=== PATIENT | male | born 1960 | race Caucasian/White ===

== ENCOUNTER 2017-10-06 07:38 | Inpatient (IN) | payer OTHER, SELFPAY ==
[~2017-10-06] VITALS: Ht 185.4 cm; Wt 67.4 kg
[~2017-10-06 07:38] MED LIST: ALBU3IS; ASPI81CH; ATOR40TA PO; Amiodarone HCl200 MG PO; BENZ100A PO; BISA10S PR; Cathflo Activase2 MG IV; Clomipramine HC25 MG PO; FAMO20 PO; HYDR10 PO; LAMO5 PO; LITH300ER PO; LORA1 PO; METO25ER PO; PANT20 PO; QUET25 PO; ROXICODONE5 MG PO; Synthroid112 MCG PO
[2017-10-06 08:46] LABS: BASOPHILS ABSOLUTE AUTO 0.07 K/mm3 (0.00-0.23); BASOPHILS PERCENT AUTO 1 % (0-2); EOSINOPHILS ABSOLUTE AUTO 0.05 K/mm3 (0.00-0.68); EOSINOPHILS PERCENT AUTO 0 % (0-6); Hematocrit 32.5 % (37.0-53.0); IMMATURE GRAN ABSOLUTE AUTO 0.02 K/mm3 (0.00-0.10); IMMATURE GRAN PERCENT AUTO 0 % (0-1); LYMPHOCYTES ABSOLUTE AUTO 0.96 K/mm3 (0.84-5.20); LYMPHOCYTES PERCENT AUTO 8 % (21-46); MONOCYTES ABSOLUTE AUTO 0.28 K/mm3 (0.16-1.47); MONOCYTES PERCENT AUTO 3 % (4-13); Mean Corpuscular HGB 27.5 pg (26.0-34.0); Mean Corpuscular HGB Conc 30.8 g/dL (31.5-36.5); Mean Corpuscular Volume 89 fL (80-100); Mean Platelet Volume 9.9 fL (9.1-12.4); NEUTROPHILS ABSOLUTE AUTO 9.99 K/mm3 (1.96-9.15); NEUTROPHILS PERCENT AUTO 88 % (41-73); Platelet Count 330 K/mm3 (150-400); RDW Standard Deviation 62.4 fL (35.1-46.3); Red Blood Cell Count 3.64 M/mm3 (4.30-5.90); White Blood Cell Count 11.37 K/mm3 (4.00-11.30)
[2017-10-06] MEDS ORDERED: ASPI81CH PO (08:54)
[2017-10-06] MEDS ORDERED: CLOM50A (08:55)
[2017-10-06] MEDS ORDERED: ATOR80 PO (08:56)
[2017-10-06] MEDS ORDERED: MIRALAX17 GM PO (08:56)
[2017-10-06] MEDS ORDERED: Ferrous Sulfat325 M2 (08:57)
[2017-10-06] MEDS ORDERED: LEVE500 PO (08:58)
[2017-10-06] MEDS ORDERED: POTA20LUD PO (08:59)
[2017-10-06 09:13] LABS: Alanine Aminotransfer (ALT/SGP 8 U/L (12-78); Albumin/Globulin Ratio 0.6 (0.8-1.8); Alk Phos 163 U/L (50-136); Anion Gap 8 mmol/L (6-16); Aspartate Aminotrans (AST/SGOT 47 U/L (12-37); Bilirubin, Total 1.1 mg/dL (0.1-1.0); Blood Urea Nitrogen 13 mg/dL (8-24); Bun/Creatinine Ratio 19.1 (12.0-20.0); CO2, Blood 24 mmol/L (21-32); Chloride, Blood 104 mmol/L (98-108); Creatinine, Blood 0.68 mg/dL (0.60-1.20); Globulin, Blood 4.7 g/dL (2.2-4.0); Glomerular Filtration Rate >60 (60-); Glucose, Blood 114 mg/dL (70-99); Potassium, Blood 4.1 mmol/L (3.5-5.5); Sodium, Blood 136 mmol/L (136-145); Total Protein, Blood 7.7 g/dL (6.4-8.2); Troponin I <0.015 ng/mL (0.000-0.040)
[2017-10-06 16:58] LABS: Source, Urine Catheter
[2017-10-06 18:02] LABS: Appearance, Urine Clear (Clear); Bilirubin, Urine Neg (Neg); Blood, Urine 4+ (Neg); Color, Urine Yellow (P-Yellow); Glucose Qualitative, Urine Neg (Neg); Ketones, Urine Neg (Neg); Leukocyte Esterase, Urine Neg (Neg); Nitrite, Urine Neg (Neg); Protein, Urine 1+ (Neg); Specific Gravity, Urine 1.015 (1.003-1.022); Urobilinogen, Urine 1+ (Normal)
[2017-10-06 18:23] LABS: White Blood Cells, Urine 0-2 /hpf (0-5)
[2017-10-06 18:24] LABS: Bacteria Rare /hpf; Squamous Epithelial Cells Not Seen /hpf (Few)
[2017-10-07 06:19] LABS: BASOPHILS ABSOLUTE AUTO 0.04 K/mm3 (0.00-0.23); BASOPHILS PERCENT AUTO 1 % (0-2); EOSINOPHILS ABSOLUTE AUTO 0.22 K/mm3 (0.00-0.68); EOSINOPHILS PERCENT AUTO 3 % (0-6); Hematocrit 29.6 % (37.0-53.0); Hemoglobin 8.7 g/dL (13.5-17.5); IMMATURE GRAN ABSOLUTE AUTO 0.01 K/mm3 (0.00-0.10); IMMATURE GRAN PERCENT AUTO 0 % (0-1); LYMPHOCYTES ABSOLUTE AUTO 0.88 K/mm3 (0.84-5.20); LYMPHOCYTES PERCENT AUTO 13 % (21-46); MONOCYTES PERCENT AUTO 8 % (4-13); Mean Corpuscular HGB 26.9 pg (26.0-34.0); Mean Corpuscular HGB Conc 29.4 g/dL (31.5-36.5); Mean Platelet Volume 9.4 fL (9.1-12.4); NEUTROPHILS ABSOLUTE AUTO 4.93 K/mm3 (1.96-9.15); NEUTROPHILS PERCENT AUTO 75 % (41-73); Platelet Count 273 K/mm3 (150-400); RDW Coefficient Variation 19.3 % (11.7-14.2); RDW Standard Deviation 64.8 fL (35.1-46.3); Red Blood Cell Count 3.23 M/mm3 (4.30-5.90); White Blood Cell Count 6.58 K/mm3 (4.00-11.30)
[2017-10-07 06:21] LABS: Mean Corpuscular Volume 92 fL (80-100)
[2017-10-07 06:35] LABS: Alanine Aminotransfer (ALT/SGP 8 U/L (12-78); Albumin, Blood 2.5 g/dL (3.4-5.0); Albumin/Globulin Ratio 0.7 (0.8-1.8); Alk Phos 127 U/L (50-136); Anion Gap 7 mmol/L (6-16); Aspartate Aminotrans (AST/SGOT 43 U/L (12-37); Bilirubin, Total 0.5 mg/dL (0.1-1.0); Blood Urea Nitrogen 11 mg/dL (8-24); Bun/Creatinine Ratio 19.8 (12.0-20.0); CO2, Blood 25 mmol/L (21-32); Calcium, Blood 8.1 mg/dL (8.5-10.1); Chloride, Blood 110 mmol/L (98-108); Creatinine, Blood 0.56 mg/dL (0.60-1.20); Globulin, Blood 3.8 g/dL (2.2-4.0); Glomerular Filtration Rate >60 (60-); Glucose, Blood 102 mg/dL (70-99); Magnesium, Blood 2.1 mg/dL (1.6-2.4); Potassium, Blood 4.1 mmol/L (3.5-5.5); Sodium, Blood 142 mmol/L (136-145); Total Protein, Blood 6.3 g/dL (6.4-8.2)
== END 2017-10-10 12:35 | DRG 390 ==
LOC: ER 07:38 → SURS 10:37 → ERHOLD 10:37 → SURS 12:32
PROVIDERS: Emergency Medicine; Internal Medicine
DX: K56.609 Unspecified intestinal obstruction, unspecified as to partial versus complete obstruction (principal); E03.9 Hypothyroidism, unspecified; I25.10 Atherosclerotic heart disease of native coronary artery without angina pectoris; G40.909 Epilepsy, unspecified, not intractable, without status epilepticus; F31.9 Bipolar disorder, unspecified; Z96.0 Presence of urogenital implants; Z93.1 Gastrostomy status; Z95.1 Presence of aortocoronary bypass graft; Z87.820 Personal history of traumatic brain injury; Z79.82 Long term (current) use of aspirin; Z79.899 Other long term (current) drug therapy
CPT/HCPCS: 36415; 74022; 74177; 80053; 81001; 83690; 83735; 84484; 85025; 93005; 93010; 94760; 96361; 96374; 96375; 97110; 97116; 97163; 97530; 99285; C9113; G8978; G8979; J1170; J1650; J1953; J2060; J2405; J7030; Q9967

== ENCOUNTER 2017-10-17 15:46 | Inpatient (IN) | payer OTHER, SELFPAY ==
[~2017-10-17] VITALS: Ht 185.4 cm; Wt 94.3 kg
[~2017-10-17 15:46] MED LIST changes: +ASPI81CH PO; +ATOR80 PO; +CLOM50A; +Ferrous Sulfat325 M2; +LEVE500 PO; +MIRALAX17 GM PO; +POTA20LUD PO
[2017-10-17 16:27] LABS: BASOPHILS ABSOLUTE AUTO 0.07 K/mm3 (0.00-0.23); BASOPHILS PERCENT AUTO 1 % (0-2); EOSINOPHILS ABSOLUTE AUTO 0.15 K/mm3 (0.00-0.68); EOSINOPHILS PERCENT AUTO 2 % (0-6); Hematocrit 35.4 % (37.0-53.0); Hemoglobin 10.9 g/dL (13.5-17.5); IMMATURE GRAN ABSOLUTE AUTO 0.03 K/mm3 (0.00-0.10); IMMATURE GRAN PERCENT AUTO 0 % (0-1); LYMPHOCYTES ABSOLUTE AUTO 1.59 K/mm3 (0.84-5.20); LYMPHOCYTES PERCENT AUTO 16 % (21-46); MONOCYTES PERCENT AUTO 7 % (4-13); Mean Corpuscular HGB 27.6 pg (26.0-34.0); Mean Corpuscular HGB Conc 30.8 g/dL (31.5-36.5); Mean Corpuscular Volume 90 fL (80-100); Mean Platelet Volume 9.9 fL (9.1-12.4); NEUTROPHILS ABSOLUTE AUTO 7.16 K/mm3 (1.96-9.15); NEUTROPHILS PERCENT AUTO 74 % (41-73); Platelet Count 348 K/mm3 (150-400); RDW Coefficient Variation 17.3 % (11.7-14.2); RDW Standard Deviation 57.8 fL (35.1-46.3); Red Blood Cell Count 3.95 M/mm3 (4.30-5.90)
[2017-10-17 16:43] LABS: Alanine Aminotransfer (ALT/SGP 17 U/L (12-78); Albumin, Blood 3.2 g/dL (3.4-5.0); Albumin/Globulin Ratio 0.7 (0.8-1.8); Alk Phos 179 U/L (50-136); Anion Gap 11 mmol/L (6-16); Aspartate Aminotrans (AST/SGOT 29 U/L (12-37); Bilirubin, Total 0.6 mg/dL (0.1-1.0); Blood Urea Nitrogen 16 mg/dL (8-24); CO2, Blood 24 mmol/L (21-32); Calcium, Blood 9.2 mg/dL (8.5-10.1); Chloride, Blood 103 mmol/L (98-108); Globulin, Blood 4.5 g/dL (2.2-4.0); Glomerular Filtration Rate >60 (60-); Glucose, Blood 97 mg/dL (70-99); Potassium, Blood 4.2 mmol/L (3.5-5.5); Sodium, Blood 138 mmol/L (136-145); Total Protein, Blood 7.7 g/dL (6.4-8.2)
[2017-10-18 04:57] LABS: Hematocrit 32.9 % (37.0-53.0); Hemoglobin 9.8 g/dL (13.5-17.5); Mean Corpuscular HGB 26.8 pg (26.0-34.0); Mean Corpuscular HGB Conc 29.8 g/dL (31.5-36.5); Mean Corpuscular Volume 90 fL (80-100); Mean Platelet Volume 9.8 fL (9.1-12.4); Platelet Count 295 K/mm3 (150-400); RDW Coefficient Variation 17.4 % (11.7-14.2); RDW Standard Deviation 57.6 fL (35.1-46.3); Red Blood Cell Count 3.66 M/mm3 (4.30-5.90); White Blood Cell Count 7.72 K/mm3 (4.00-11.30)
[2017-10-18 05:14] LABS: Alanine Aminotransfer (ALT/SGP 16 U/L (12-78); Albumin, Blood 2.8 g/dL (3.4-5.0); Albumin/Globulin Ratio 0.7 (0.8-1.8); Alk Phos 159 U/L (50-136); Anion Gap 9 mmol/L (6-16); Aspartate Aminotrans (AST/SGOT 28 U/L (12-37); Bilirubin, Total 0.5 mg/dL (0.1-1.0); Blood Urea Nitrogen 15 mg/dL (8-24); CO2, Blood 23 mmol/L (21-32); Calcium, Blood 8.4 mg/dL (8.5-10.1); Chloride, Blood 105 mmol/L (98-108); Creatinine, Blood 0.79 mg/dL (0.60-1.20); Globulin, Blood 4.3 g/dL (2.2-4.0); Glomerular Filtration Rate >60 (60-); Glucose, Blood 85 mg/dL (70-99); Magnesium, Blood 1.8 mg/dL (1.6-2.4); Phosphorus, Blood 4.2 mg/dL (2.5-4.9); Sodium, Blood 137 mmol/L (136-145); Total Protein, Blood 7.1 g/dL (6.4-8.2)
[2017-10-18 05:47] LABS: BAND PERCENT MAN 12 % (0-8); BASOPHILS PERCENT MAN 0 % (0-2); EOSINOPHILS ABSOLUTE MAN 0.38 K/mm3 (0.00-0.68); EOSINOPHILS PERCENT MAN 5 % (0-6); LYMPHOCYTES % ATYPICAL MANUAL 1 % (0-0); LYMPHOCYTES ABSOLUTE MAN 0.46 K/mm3 (0.84-5.20); LYMPHOCYTES PERCENT MAN 5 % (21-46); MONOCYTES ABSOLUTE MAN 0.69 K/mm3 (0.16-1.47); MONOCYTES PERCENT MAN 9 % (4-13); NEUTROPHILS ABSOLUTE MAN 6.17 K/mm3 (1.96-9.15); SEG NEUTROPHILS PERCENT MAN 68 % (41-73); TOTAL CELLS COUNTED 100
[2017-10-18 19:02] LABS: PCO2 Arterial 35.5 mmHg (35-45); PO2 Arterial 214 mmHg (80-100); pH Blood Arterial 7.35 (7.35-7.45)
[2017-10-19 05:44] LABS: Hematocrit 34.6 % (37.0-53.0); Hemoglobin 10.4 g/dL (13.5-17.5); Mean Corpuscular HGB 27.1 pg (26.0-34.0); Mean Corpuscular HGB Conc 30.1 g/dL (31.5-36.5); Mean Corpuscular Volume 90 fL (80-100); Mean Platelet Volume 9.8 fL (9.1-12.4); Platelet Count 276 K/mm3 (150-400); RDW Coefficient Variation 17.2 % (11.7-14.2); RDW Standard Deviation 57.1 fL (35.1-46.3); Red Blood Cell Count 3.84 M/mm3 (4.30-5.90); White Blood Cell Count 8.85 K/mm3 (4.00-11.30)
[2017-10-19 06:10] LABS: Alanine Aminotransfer (ALT/SGP 16 U/L (12-78); Albumin, Blood 2.6 g/dL (3.4-5.0); Albumin/Globulin Ratio 0.6 (0.8-1.8); Alk Phos 154 U/L (50-136); Anion Gap 9 mmol/L (6-16); Aspartate Aminotrans (AST/SGOT 26 U/L (12-37); Bilirubin, Total 0.5 mg/dL (0.1-1.0); Blood Urea Nitrogen 9 mg/dL (8-24); Bun/Creatinine Ratio 13.6 (12.0-20.0); CO2, Blood 23 mmol/L (21-32); Calcium, Blood 8.2 mg/dL (8.5-10.1); Chloride, Blood 107 mmol/L (98-108); Creatinine, Blood 0.66 mg/dL (0.60-1.20); Globulin, Blood 4.2 g/dL (2.2-4.0); Glomerular Filtration Rate >60 (60-); Glucose, Blood 168 mg/dL (70-99); Magnesium, Blood 1.8 mg/dL (1.6-2.4); Phosphorus, Blood 3.4 mg/dL (2.5-4.9); Potassium, Blood 4.2 mmol/L (3.5-5.5); Sodium, Blood 139 mmol/L (136-145); Total Protein, Blood 6.8 g/dL (6.4-8.2)
[2017-10-19 06:40] LABS: BAND PERCENT MAN 9 % (0-8); BASOPHILS PERCENT MAN 0 % (0-2); EOSINOPHILS PERCENT MAN 0 % (0-6); LYMPHOCYTES ABSOLUTE MAN 0.08 K/mm3 (0.84-5.20); LYMPHOCYTES PERCENT MAN 1 % (21-46); MONOCYTES PERCENT MAN 0 % (4-13); NEUTROPHILS ABSOLUTE MAN 8.76 K/mm3 (1.96-9.15); SEG NEUTROPHILS PERCENT MAN 90 % (41-73); TOTAL CELLS COUNTED 100
[2017-10-20 05:19] LABS: BASOPHILS ABSOLUTE AUTO 0.01 K/mm3 (0.00-0.23); BASOPHILS PERCENT AUTO 0 % (0-2); EOSINOPHILS PERCENT AUTO 0 % (0-6); Hematocrit 28.3 % (37.0-53.0); Hemoglobin 8.5 g/dL (13.5-17.5); IMMATURE GRAN ABSOLUTE AUTO 0.07 K/mm3 (0.00-0.10); IMMATURE GRAN PERCENT AUTO 1 % (0-1); LYMPHOCYTES ABSOLUTE AUTO 1.37 K/mm3 (0.84-5.20); LYMPHOCYTES PERCENT AUTO 13 % (21-46); MONOCYTES ABSOLUTE AUTO 0.45 K/mm3 (0.16-1.47); MONOCYTES PERCENT AUTO 4 % (4-13); Mean Corpuscular Volume 90 fL (80-100); Mean Platelet Volume 10.2 fL (9.1-12.4); NEUTROPHILS ABSOLUTE AUTO 8.48 K/mm3 (1.96-9.15); NEUTROPHILS PERCENT AUTO 82 % (41-73); Platelet Count 251 K/mm3 (150-400); RDW Coefficient Variation 16.7 % (11.7-14.2); RDW Standard Deviation 55.2 fL (35.1-46.3); Red Blood Cell Count 3.15 M/mm3 (4.30-5.90); White Blood Cell Count 10.38 K/mm3 (4.00-11.30)
[2017-10-20 05:47] LABS: Albumin, Blood 2.3 g/dL (3.4-5.0); Anion Gap 7 mmol/L (6-16); Blood Urea Nitrogen 6 mg/dL (8-24); Bun/Creatinine Ratio 10.7 (12.0-20.0); CO2, Blood 24 mmol/L (21-32); Calcium, Blood 7.9 mg/dL (8.5-10.1); Chloride, Blood 108 mmol/L (98-108); Creatinine, Blood 0.56 mg/dL (0.60-1.20); Glomerular Filtration Rate >60 (60-); Glucose, Blood 155 mg/dL (70-99); Magnesium, Blood 1.8 mg/dL (1.6-2.4); Phosphorus, Blood 2.6 mg/dL (2.5-4.9); Potassium, Blood 3.4 mmol/L (3.5-5.5); Sodium, Blood 139 mmol/L (136-145)
[2017-10-21 01:26] LABS: Source, Urine Catheter
[2017-10-21 01:29] LABS: Bilirubin, Urine Neg (Neg); Blood, Urine 1+ (Neg); Glucose Qualitative, Urine Neg (Neg); Ketones, Urine Neg (Neg); Leukocyte Esterase, Urine 2+ (Neg); Nitrite, Urine Pos (Neg); Protein, Urine Neg (Neg); Urobilinogen, Urine NORM (Normal)
[2017-10-21 01:44] LABS: Appearance, Urine Hazy (Clear); Color, Urine Yellow (P-Yellow)
[2017-10-21 01:54] LABS: Bacteria Many /hpf; Red Blood Cells, Urine Rare /hpf (0-2); Squamous Epithelial Cells Not Seen /hpf (Few)
[2017-10-21 05:30] LABS: BASOPHILS ABSOLUTE AUTO 0.05 K/mm3 (0.00-0.23); BASOPHILS PERCENT AUTO 1 % (0-2); EOSINOPHILS ABSOLUTE AUTO 0.41 K/mm3 (0.00-0.68); EOSINOPHILS PERCENT AUTO 4 % (0-6); Hemoglobin 8.7 g/dL (13.5-17.5); IMMATURE GRAN ABSOLUTE AUTO 0.09 K/mm3 (0.00-0.10); IMMATURE GRAN PERCENT AUTO 1 % (0-1); LYMPHOCYTES ABSOLUTE AUTO 2.08 K/mm3 (0.84-5.20); LYMPHOCYTES PERCENT AUTO 21 % (21-46); MONOCYTES ABSOLUTE AUTO 0.62 K/mm3 (0.16-1.47); MONOCYTES PERCENT AUTO 6 % (4-13); Mean Corpuscular HGB 27.4 pg (26.0-34.0); Mean Corpuscular Volume 92 fL (80-100); Mean Platelet Volume 9.7 fL (9.1-12.4); NEUTROPHILS ABSOLUTE AUTO 6.68 K/mm3 (1.96-9.15); NEUTROPHILS PERCENT AUTO 67 % (41-73); Platelet Count 247 K/mm3 (150-400); RDW Coefficient Variation 16.8 % (11.7-14.2); RDW Standard Deviation 56.1 fL (35.1-46.3); Red Blood Cell Count 3.17 M/mm3 (4.30-5.90); White Blood Cell Count 9.93 K/mm3 (4.00-11.30)
[2017-10-21 06:10] LABS: Albumin, Blood 2.3 g/dL (3.4-5.0); Anion Gap 5 mmol/L (6-16); Blood Urea Nitrogen 5 mg/dL (8-24); Bun/Creatinine Ratio 6.7 (12.0-20.0); CO2, Blood 27 mmol/L (21-32); Chloride, Blood 111 mmol/L (98-108); Creatinine, Blood 0.75 mg/dL (0.60-1.20); Glomerular Filtration Rate >60 (60-); Glucose, Blood 81 mg/dL (70-99); Phosphorus, Blood 2.7 mg/dL (2.5-4.9); Potassium, Blood 3.6 mmol/L (3.5-5.5); Sodium, Blood 143 mmol/L (136-145)
[2017-10-22 04:58] LABS: BASOPHILS ABSOLUTE AUTO 0.07 K/mm3 (0.00-0.23); BASOPHILS PERCENT AUTO 1 % (0-2); EOSINOPHILS ABSOLUTE AUTO 0.49 K/mm3 (0.00-0.68); EOSINOPHILS PERCENT AUTO 5 % (0-6); Hematocrit 31.2 % (37.0-53.0); Hemoglobin 9.1 g/dL (13.5-17.5); IMMATURE GRAN ABSOLUTE AUTO 0.13 K/mm3 (0.00-0.10); IMMATURE GRAN PERCENT AUTO 1 % (0-1); LYMPHOCYTES ABSOLUTE AUTO 2.11 K/mm3 (0.84-5.20); LYMPHOCYTES PERCENT AUTO 21 % (21-46); MONOCYTES ABSOLUTE AUTO 0.53 K/mm3 (0.16-1.47); MONOCYTES PERCENT AUTO 5 % (4-13); Mean Corpuscular HGB 26.5 pg (26.0-34.0); Mean Corpuscular HGB Conc 29.2 g/dL (31.5-36.5); Mean Corpuscular Volume 91 fL (80-100); NEUTROPHILS ABSOLUTE AUTO 6.55 K/mm3 (1.96-9.15); NEUTROPHILS PERCENT AUTO 66 % (41-73); Platelet Count 249 K/mm3 (150-400); RDW Coefficient Variation 17.1 % (11.7-14.2); Red Blood Cell Count 3.43 M/mm3 (4.30-5.90); White Blood Cell Count 9.88 K/mm3 (4.00-11.30)
[2017-10-22 05:18] LABS: Albumin, Blood 2.2 g/dL (3.4-5.0); Anion Gap 8 mmol/L (6-16); Blood Urea Nitrogen 5 mg/dL (8-24); Bun/Creatinine Ratio 7.2 (12.0-20.0); CO2, Blood 27 mmol/L (21-32); Chloride, Blood 106 mmol/L (98-108); Glomerular Filtration Rate >60 (60-); Glucose, Blood 86 mg/dL (70-99); Magnesium, Blood 1.7 mg/dL (1.6-2.4); Phosphorus, Blood 3.4 mg/dL (2.5-4.9); Potassium, Blood 3.2 mmol/L (3.5-5.5); Sodium, Blood 141 mmol/L (136-145)
[2017-10-23 06:12] LABS: Anion Gap 8 mmol/L (6-16); Blood Urea Nitrogen 6 mg/dL (8-24); Bun/Creatinine Ratio 8.7 (12.0-20.0); CO2, Blood 29 mmol/L (21-32); Calcium, Blood 8.3 mg/dL (8.5-10.1); Chloride, Blood 104 mmol/L (98-108); Creatinine, Blood 0.69 mg/dL (0.60-1.20); Glomerular Filtration Rate >60 (60-); Glucose, Blood 88 mg/dL (70-99); Potassium, Blood 3.2 mmol/L (3.5-5.5); Sodium, Blood 141 mmol/L (136-145)
== END 2017-10-23 13:57 | DRG 329 ==
LOC: ER 15:46 → ERHOLD 18:11 → ICUE 18:11 → SURS 18:11 → ICUE 10-18 17:18 → SURS 10-19 10:52
PROVIDERS: Family Medicine; Hospitalist; Internal Medicine; Internal Medicine Critical Care Medicine; Physician Assistant; Surgery
PROC: 3E0234Z Introduction of Serum, Toxoid and Vaccine into Muscle, Percutaneous Approach (ICD-10-PCS; 2017-10-17)
PROC: 0DT80ZZ Resection of Small Intestine, Open Approach (ICD-10-PCS; 2017-10-18)
PROC: 0WQF0ZZ Repair Abdominal Wall, Open Approach (ICD-10-PCS; 2017-10-18)
PROC: 5A1935Z Respiratory Ventilation, Less than 24 Consecutive Hours (ICD-10-PCS; 2017-10-18)
PROC: 0BH17EZ Insertion of Endotracheal Airway into Trachea, Via Natural or Artificial Opening (ICD-10-PCS; 2017-10-18)
PROC: 0DN80ZZ Release Small Intestine, Open Approach (ICD-10-PCS; principal; 2017-10-18 13:15)
DX: K56.50 Intestinal adhesions [bands], unspecified as to partial versus complete obstruction (principal); J95.821 Acute postprocedural respiratory failure; G82.20 Paraplegia, unspecified; N39.0 Urinary tract infection, site not specified; I10 Essential (primary) hypertension; Z23 Encounter for immunization; Z87.820 Personal history of traumatic brain injury; Z95.1 Presence of aortocoronary bypass graft; G40.909 Epilepsy, unspecified, not intractable, without status epilepticus; E03.9 Hypothyroidism, unspecified; F31.9 Bipolar disorder, unspecified; I49.9 Cardiac arrhythmia, unspecified; K42.9 Umbilical hernia without obstruction or gangrene; N32.89 Other specified disorders of bladder; Z93.1 Gastrostomy status; Z95.2 Presence of prosthetic heart valve; J39.8 Other specified diseases of upper respiratory tract; E87.6 Hypokalemia; I25.10 Atherosclerotic heart disease of native coronary artery without angina pectoris
CPT/HCPCS: 31720; 36415; 36600; 51702; 71045; 74018; 74177; 80048; 80053; 80069; 81001; 82803; 82947; 83690; 83735; 84100; 85025; 87077; 87086; 87186; 88307; 94002; 94003; 94640; 94760; 94762; 96374; 96375; 97162; 97530; 99285; C9113; G8978; G8979; J0295; J0330; J0696; J1100; J1170; J1644; J1650; J2250; J2270; J2405; J3010; J7030; J7040; J7042; J7120; Q9967

== ENCOUNTER 2018-01-16 11:58 | Day surgery (SDC) | payer OTHER | END 2018-01-16 22:53 | disposition home or self-care (01) | LOC: WOUND 11:58 | DX: Z48.01 Encounter for change or removal of surgical wound dressing (principal); T81.31XA Disruption of external operation (surgical) wound, not elsewhere classified, initial encounter; S21.109A Unspecified open wound of unspecified front wall of thorax without penetration into thoracic cavity, initial encounter; F31.81 Bipolar II disorder; R33.9 Retention of urine, unspecified; Z96.0 Presence of urogenital implants; I25.10 Atherosclerotic heart disease of native coronary artery without angina pectoris; Z95.1 Presence of aortocoronary bypass graft; I10 Essential (primary) hypertension; I48.0 Paroxysmal atrial fibrillation; G93.1 Anoxic brain damage, not elsewhere classified; G40.901 Epilepsy, unspecified, not intractable, with status epilepticus; E03.9 Hypothyroidism, unspecified | CPT/HCPCS: G0463 ==

== ENCOUNTER 2018-01-23 14:00 | Day surgery (SDC) | payer OTHER | END 2018-01-23 23:35 | disposition home or self-care (01) | LOC: WOUND 14:00 | DX: Z48.01 Encounter for change or removal of surgical wound dressing (principal); T81.31XA Disruption of external operation (surgical) wound, not elsewhere classified, initial encounter; S21.109A Unspecified open wound of unspecified front wall of thorax without penetration into thoracic cavity, initial encounter; F31.81 Bipolar II disorder; Z96.0 Presence of urogenital implants; I25.10 Atherosclerotic heart disease of native coronary artery without angina pectoris; Z95.1 Presence of aortocoronary bypass graft; I48.0 Paroxysmal atrial fibrillation; I11.0 Hypertensive heart disease with heart failure; I50.9 Heart failure, unspecified; E03.9 Hypothyroidism, unspecified | CPT/HCPCS: G0463 ==

== ENCOUNTER 2018-01-30 11:15 | Day surgery (SDC) | payer OTHER | END 2018-01-30 22:46 | disposition home or self-care (01) | LOC: WOUND 11:15 | DX: Z48.01 Encounter for change or removal of surgical wound dressing (principal); T81.31XA Disruption of external operation (surgical) wound, not elsewhere classified, initial encounter; S21.109A Unspecified open wound of unspecified front wall of thorax without penetration into thoracic cavity, initial encounter; F31.81 Bipolar II disorder; R33.9 Retention of urine, unspecified; E03.9 Hypothyroidism, unspecified; Z96.0 Presence of urogenital implants; I25.10 Atherosclerotic heart disease of native coronary artery without angina pectoris; Z95.1 Presence of aortocoronary bypass graft; I10 Essential (primary) hypertension; I48.0 Paroxysmal atrial fibrillation | CPT/HCPCS: G0463 ==

== ENCOUNTER → 2018-12-12 | Outpatient (CLI) | payer OTHER ==
[~2018-12-12] MED LIST changes: +BACL10 PO; +CHOL10002 PO; +Ferrous Glucon324 M1 PO; +Hair, Skin & N1 EACH PO; +LAMO25 PO; +LEVSOD125 PO; +Lopressor 25 mg25 MG PO; +Naprosyn500 MG PO; +Norco 5-325 Ta1 EACH PO; +QUET100 PO; +TERB250 PO; +ZONI100 PO
== END | disposition home or self-care (01) ==
LOC: PLD 07:23 → LAB SHORT 07:23
DX: B35.1 Tinea unguium (principal)
CPT/HCPCS: 88305; 88312

== ENCOUNTER 2019-03-28 11:20 | Inpatient (IN) | payer OTHER ==
[~2019-03-28] VITALS: Ht 175.3 cm; Wt 95.2 kg
[2019-03-28 11:53] LABS: BASOPHILS ABSOLUTE AUTO 0.11 K/mm3 (0.00-0.23); BASOPHILS PERCENT AUTO 1 % (0-2); EOSINOPHILS ABSOLUTE AUTO 0.31 K/mm3 (0.00-0.68); EOSINOPHILS PERCENT AUTO 2 % (0-6); Hematocrit 47.6 % (37.0-53.0); Hemoglobin 15.8 g/dL (13.5-17.5); IMMATURE GRAN ABSOLUTE AUTO 0.28 K/mm3 (0.00-0.10); IMMATURE GRAN PERCENT AUTO 2 % (0-1); LYMPHOCYTES ABSOLUTE AUTO 4.39 K/mm3 (0.84-5.20); LYMPHOCYTES PERCENT AUTO 33 % (21-46); MONOCYTES ABSOLUTE AUTO 0.81 K/mm3 (0.16-1.47); MONOCYTES PERCENT AUTO 6 % (4-13); Mean Corpuscular HGB 30.4 pg (26.0-34.0); Mean Corpuscular HGB Conc 33.2 g/dL (31.5-36.5); Mean Corpuscular Volume 92 fL (80-100); Mean Platelet Volume 10.1 fL (9.1-12.4); NEUTROPHILS ABSOLUTE AUTO 7.57 K/mm3 (1.96-9.15); NEUTROPHILS PERCENT AUTO 56 % (41-73); Platelet Count 288 K/mm3 (150-400); RDW Coefficient Variation 12.9 % (11.7-14.2); RDW Standard Deviation 42.9 fL (35.1-46.3); White Blood Cell Count 13.47 K/mm3 (4.00-11.30)
[2019-03-28 12:14] LABS: Alanine Aminotransfer (ALT/SGP 79 U/L (12-78); Albumin, Blood 4.3 g/dL (3.4-5.0); Albumin/Globulin Ratio 1.2 (0.8-1.8); Alk Phos 134 U/L (50-136); Anion Gap 12 mmol/L (6-16); Aspartate Aminotrans (AST/SGOT 62 U/L (12-37); Bilirubin, Total 0.5 mg/dL (0.1-1.0); Blood Urea Nitrogen 21 mg/dL (8-24); Bun/Creatinine Ratio 17.5 (12.0-20.0); CO2, Blood 17 mmol/L (21-32); Calcium, Blood 9.2 mg/dL (8.5-10.1); Chloride, Blood 110 mmol/L (98-108); Globulin, Blood 3.6 g/dL (2.2-4.0); Glomerular Filtration Rate >60 (60-); Glucose, Blood 199 mg/dL (70-99); Potassium, Blood 4.2 mmol/L (3.5-5.5); Sodium, Blood 139 mmol/L (136-145); Total Protein, Blood 7.9 g/dL (6.4-8.2); Troponin I <0.015 ng/mL (0.000-0.040)
[2019-03-28 13:44] LABS: International Normalized Ratio 0.99; Prothrombin Time Results 10.5 Sec (9.7-11.5)
[2019-03-28 17:29] LABS: Source, Urine Clean Catch
[2019-03-28 17:36] LABS: Bilirubin, Urine Neg (Neg); Blood, Urine 1+ (Neg); Glucose Qualitative, Urine Neg (Neg); Ketones, Urine Neg (Neg); Leukocyte Esterase, Urine Neg (Neg); Nitrite, Urine Neg (Neg); Protein, Urine Neg (Neg); Urobilinogen, Urine NORM (Normal)
[2019-03-28 17:42] LABS: Appearance, Urine Clear (Clear); Color, Urine Yellow (P-Yellow)
[2019-03-28 17:44] LABS: Bacteria Few /hpf; Squamous Epithelial Cells Not Seen /hpf (Few); White Blood Cells, Urine 0-2 /hpf (0-5)
--- NOTE | 2019-03-28 18:17 | NUR ---
HANDOFF NOTE RECEIVED HANDOFF FROM ED NURSE RAJESH. 59 YR OLD MALE ADMITTED FOR ACUTE ENCEPHALOPATHY. FULL CODE. ARRIVED VIA AMBULANCE FROM HOME WITH HIS . CARDIAC DIET. DISORIENTED/FORGETFUL FOR LAST TWO DAYS. TODAY UNRESPONSIVE SO CALLED AMBULANCE. IS HCP. ON TELEMETRY. ROOM AIR. SCD'S FOR DVT PREVENTION. HX: CABG, MIGRAINE, ANOXIC BRAIN DAMAGE, LEFT SIDE HEMIPARESIS, BIPOLAR, SEIZURES, TRACH, HUANG FOR RETENTION. MICHELLE FOR SEIZURES RECENTLY DC'D.
--- NOTE | 2019-03-28 22:49 | NUR ---
PT C/O LOW BACK PAIN AND REQUESTING HOME MED OF NORCO 5/325; THIS NURSE CALLED Anne LEDEZMA NP WITH ORDERS RECEIVED FOR NORCO 5/325MG PO, 1-2TABS, EVERY 4 HOURS, PRN, PAIN.
--- NOTE | 2019-03-29 04:18 | NUR ---
SHIFT SUMMARY: 59 Y/O MALE HAD RESTLESS EVENING WITH PATIENT UP AND DOWN FREQUENTLY TO SIT IN BEDSIDE LOUNGE CHAIR OR BED WHICH HE ADJUSTED FREQUENTLY. PT C/O LOW BACK PAIN 04/03 AND WAS MEDICATED WITH NORCO 5/325 MG X 2 TABLETS AND TYLENOL 650MG PO X 1 WITH RELIEF FELT. PT ALERT AND ORIENTED TO PERSON AND REQUIRED FREQUENT REDIRECTION BY STAFF. PTS VOIDING OK WITH BLADDER SCAN X 1 REVEALING 191 ML (NO STRAIGHT CATHETERIZATION DONE). PTS BED/CHAIR ALARM APPLIED, BED LOW POSITION, CALL LIGHT AT SIDE.
[2019-03-29 04:40] LABS: BASOPHILS ABSOLUTE AUTO 0.04 K/mm3 (0.00-0.23); BASOPHILS PERCENT AUTO 0 % (0-2); EOSINOPHILS PERCENT AUTO 0 % (0-6); Hematocrit 47.1 % (37.0-53.0); Hemoglobin 15.6 g/dL (13.5-17.5); IMMATURE GRAN ABSOLUTE AUTO 0.08 K/mm3 (0.00-0.10); IMMATURE GRAN PERCENT AUTO 0 % (0-1); LYMPHOCYTES ABSOLUTE AUTO 1.49 K/mm3 (0.84-5.20); LYMPHOCYTES PERCENT AUTO 8 % (21-46); MONOCYTES PERCENT AUTO 5 % (4-13); Mean Corpuscular HGB 30.5 pg (26.0-34.0); Mean Corpuscular HGB Conc 33.1 g/dL (31.5-36.5); Mean Corpuscular Volume 92 fL (80-100); Mean Platelet Volume 9.8 fL (9.1-12.4); NEUTROPHILS ABSOLUTE AUTO 16.75 K/mm3 (1.96-9.15); NEUTROPHILS PERCENT AUTO 87 % (41-73); Platelet Count 238 K/mm3 (150-400); RDW Standard Deviation 43.6 fL (35.1-46.3); Red Blood Cell Count 5.12 M/mm3 (4.30-5.90); White Blood Cell Count 19.26 K/mm3 (4.00-11.30)
[2019-03-29 05:01] LABS: Anion Gap 9 mmol/L (6-16); Blood Urea Nitrogen 21 mg/dL (8-24); CO2, Blood 21 mmol/L (21-32); Calcium, Blood 9.4 mg/dL (8.5-10.1); Chloride, Blood 108 mmol/L (98-108); Glomerular Filtration Rate >60 (60-); Glucose, Blood 191 mg/dL (70-99); Potassium, Blood 4.3 mmol/L (3.5-5.5); Sodium, Blood 138 mmol/L (136-145)
--- NOTE | 2019-03-29 14:11 | NUR ---
PATIENT COMPLAINED OF UPPER QUADRANT BELLY PAIN YET WHEN OFFERED PAIN MEDS BY THE NURSE THE PATIENT REFUSED THEM ALL STATING THAT THEY DID NOT WORK. HE IS CALM, VITALS WNL AND IS NO OUTWARD VISIBLE DISTRESS AT THIS TIME. NURSE TOLD HIM IF HE CHANGED HIS MIND TO USE HIS CALL LIGHT. WHEN NURSE WENT BACK IN LATER TO CHANGE OUT IV FLUID PATIENT STATED HE WAS NOT IN PAIN AT THE TIME, JUST TIRED FROM NOT SLEEPING. NURSE ADJUSTED RECLINER IN HOPES PATIENT WOULD SLEEP. NO DISTRESS NOTED .
--- NOTE | 2019-03-30 03:16 | NUR ---
PATIENT IV SITE DOCUMENTED, BUT PRE-EXISTING TO ARRIVAL ON MEDICAL FLOOR. #20 RH
--- NOTE | 2019-03-30 06:20 | NUR ---
BLADDER SCANNED PATIENT PER ORDER AND = 209ML
[2019-03-30 07:17] LABS: BASOPHILS ABSOLUTE AUTO 0.05 K/mm3 (0.00-0.23); BASOPHILS PERCENT AUTO 0 % (0-2); EOSINOPHILS ABSOLUTE AUTO 0.02 K/mm3 (0.00-0.68); EOSINOPHILS PERCENT AUTO 0 % (0-6); Hematocrit 42.5 % (37.0-53.0); Hemoglobin 14.3 g/dL (13.5-17.5); IMMATURE GRAN ABSOLUTE AUTO 0.14 K/mm3 (0.00-0.10); IMMATURE GRAN PERCENT AUTO 1 % (0-1); LYMPHOCYTES ABSOLUTE AUTO 1.58 K/mm3 (0.84-5.20); LYMPHOCYTES PERCENT AUTO 7 % (21-46); MONOCYTES ABSOLUTE AUTO 1.63 K/mm3 (0.16-1.47); MONOCYTES PERCENT AUTO 7 % (4-13); Mean Corpuscular HGB 30.8 pg (26.0-34.0); Mean Corpuscular HGB Conc 33.6 g/dL (31.5-36.5); Mean Corpuscular Volume 91 fL (80-100); Mean Platelet Volume 9.8 fL (9.1-12.4); NEUTROPHILS ABSOLUTE AUTO 19.19 K/mm3 (1.96-9.15); NEUTROPHILS PERCENT AUTO 85 % (41-73); Platelet Count 172 K/mm3 (150-400); RDW Coefficient Variation 13.5 % (11.7-14.2); RDW Standard Deviation 44.3 fL (35.1-46.3); Red Blood Cell Count 4.65 M/mm3 (4.30-5.90); White Blood Cell Count 22.61 K/mm3 (4.00-11.30)
--- NOTE | 2019-03-30 17:36 | NUR ---
SHIFT SUMMARY NO ACUTE CHANGES. PATIENT MEDICATED X 2 FOR PAIN THIS SHIFT. PATIENT RESTING IN BED MOST OF SHIFT. UP SBA TO BATHROOM. PT WORKED WITH PATIENT. PATIENT IS VERY EAGER TO GO HOME. FAMILY VISITING IN THE AFTERNOON. CALL LIGHT IN REACH, WILL CONTINUE TO MONITOR.
--- NOTE | 2019-03-30 21:09 | NUR ---
1914: RECEIVED REPORT AND ASSUMED CARE OF PATIENT. PATIENT DENIES PAIN AT THIS TIME. IVF INFUSING TO #20 IN RH, WHICH IS SLIGHTLY PUFFY. ELEVATED HAND ON A PILLOW. PATIENT DECLINES BRP, REPOSITION, PERSONAL NEEDS. CALL NICHOLS WITHIN REACH. 2109: PATIENT C/O PAIN IN HIS BACK, PAIN MEDS GIVEN PER EMAR. OFFERED TO REPOSITION AND PATIENT DECLINED. PATIENT STATING THAT THE BED IS TOO SHORT, TOO UNCOMFORTABLE. STATING THAT HE WILL GO HOME RATHER THAN STAY IN THIS BED. ALERTED CHARGE TO SEE IF WE CAN FIND A BED WITH A FOOT HEAT CURER. PATIENT DECIDED TO LAY FLAT AND HAS MORE FOOT ROOM FOR THE MOMENT. SUGGESTED FLOATING HIS HIPS OR EXTRA PILLOWS BEHIND HIS BACK. PT DECLINED. SUGGESTED ADDING AN EGG CRATE TO BED. PATIENT DECLINED. ADVISED PATIENT BUILDING CONSTRUCTION ENGINEER STACY WOULD COME TO SEE HIM SHORTLY.
[2019-03-31 05:37] LABS: BASOPHILS ABSOLUTE AUTO 0.05 K/mm3 (0.00-0.23); BASOPHILS PERCENT AUTO 0 % (0-2); EOSINOPHILS ABSOLUTE AUTO 0.12 K/mm3 (0.00-0.68); EOSINOPHILS PERCENT AUTO 1 % (0-6); Hematocrit 37.7 % (37.0-53.0); Hemoglobin 12.7 g/dL (13.5-17.5); IMMATURE GRAN ABSOLUTE AUTO 0.14 K/mm3 (0.00-0.10); IMMATURE GRAN PERCENT AUTO 1 % (0-1); LYMPHOCYTES ABSOLUTE AUTO 1.28 K/mm3 (0.84-5.20); LYMPHOCYTES PERCENT AUTO 7 % (21-46); MONOCYTES ABSOLUTE AUTO 1.29 K/mm3 (0.16-1.47); MONOCYTES PERCENT AUTO 7 % (4-13); Mean Corpuscular HGB 31.2 pg (26.0-34.0); Mean Corpuscular HGB Conc 33.7 g/dL (31.5-36.5); Mean Corpuscular Volume 93 fL (80-100); Mean Platelet Volume 9.6 fL (9.1-12.4); NEUTROPHILS ABSOLUTE AUTO 16.24 K/mm3 (1.96-9.15); NEUTROPHILS PERCENT AUTO 85 % (41-73); Platelet Count 149 K/mm3 (150-400); RDW Coefficient Variation 13.4 % (11.7-14.2); RDW Standard Deviation 45.6 fL (35.1-46.3); Red Blood Cell Count 4.07 M/mm3 (4.30-5.90); White Blood Cell Count 19.12 K/mm3 (4.00-11.30)
[2019-03-31 05:56] LABS: Alanine Aminotransfer (ALT/SGP 35 U/L (12-78); Albumin, Blood 3.2 g/dL (3.4-5.0); Albumin/Globulin Ratio 0.9 (0.8-1.8); Alk Phos 94 U/L (50-136); Anion Gap 6 mmol/L (6-16); Aspartate Aminotrans (AST/SGOT 21 U/L (12-37); Blood Urea Nitrogen 11 mg/dL (8-24); Bun/Creatinine Ratio 14.9 (12.0-20.0); CO2, Blood 20 mmol/L (21-32); Calcium, Blood 8.3 mg/dL (8.5-10.1); Chloride, Blood 110 mmol/L (98-108); Creatinine, Blood 0.74 mg/dL (0.60-1.20); Globulin, Blood 3.4 g/dL (2.2-4.0); Glomerular Filtration Rate >60 (60-); Glucose, Blood 127 mg/dL (70-99); Magnesium, Blood 2.4 mg/dL (1.6-2.4); Potassium, Blood 3.9 mmol/L (3.5-5.5); Sodium, Blood 136 mmol/L (136-145); Total Protein, Blood 6.6 g/dL (6.4-8.2)
[2019-03-31] MEDS ORDERED: ONDA4ODT MM (10:39)
--- NOTE | 2019-03-31 11:03 | NUR ---
DISCHARGE DISCHARGE MEDICATION AND INSTRUCTIONS EXPLAINED TO PATIENT AND PATIENT'S . THEY STATED UNDERSTANDING. IV REMOVED WITHOUT DIFFICULTY. PATIENT HAS REQUESTED [facility] TO BE THE HH PROVIDER. BELONGINGS WITH PATIENT. PATIENT TRANSFERRED TO PRIVATE VEHICLE VIA WHEELCHAIR.
== END 2019-03-31 10:58 | disposition home health service (06) | DRG 439 ==
LOC: ER 11:20 → ERHOLD 11:21 → MEDS 11:21 → ENPENDDIS 03-31 10:21 → MEDS 03-31 10:58
PROVIDERS: Emergency Medicine; ADMIT Internal Medicine
DX: K85.90 Acute pancreatitis without necrosis or infection, unspecified (principal); G93.40 Encephalopathy, unspecified; G93.1 Anoxic brain damage, not elsewhere classified; G81.94 Hemiplegia, unspecified affecting left nondominant side; R47.01 Aphasia; G40.909 Epilepsy, unspecified, not intractable, without status epilepticus; F31.9 Bipolar disorder, unspecified; R39.198 Other difficulties with micturition; I10 Essential (primary) hypertension; G43.909 Migraine, unspecified, not intractable, without status migrainosus; Z95.1 Presence of aortocoronary bypass graft; E03.9 Hypothyroidism, unspecified; Z66 Do not resuscitate
CPT/HCPCS: 36415; 51702; 70450; 70496; 70498; 80048; 80053; 81001; 83605; 83690; 83735; 84146; 84484; 85025; 85610; 85730; 93005; 93010; 96361; 96372; 96372-59; 96374; 97116; 97162; 97165; 97530; 99285-25; A9270; A9270-GY; G0378; J1650; J2405; J7030; Q9967

== ENCOUNTER 2019-04-02 15:00 | Emergency (ER) | payer OTHER ==
[~2019-04-02] VITALS: Ht 188 cm; Wt 112.5 kg
[~2019-04-02 15:00] MED LIST changes: +ONDA4ODT MM
[2019-04-02 16:19] LABS: BASOPHILS ABSOLUTE AUTO 0.11 K/mm3 (0.00-0.23); BASOPHILS PERCENT AUTO 1 % (0-2); EOSINOPHILS ABSOLUTE AUTO 0.48 K/mm3 (0.00-0.68); EOSINOPHILS PERCENT AUTO 3 % (0-6); Hematocrit 44.3 % (37.0-53.0); Hemoglobin 14.9 g/dL (13.5-17.5); IMMATURE GRAN ABSOLUTE AUTO 0.14 K/mm3 (0.00-0.10); IMMATURE GRAN PERCENT AUTO 1 % (0-1); LYMPHOCYTES ABSOLUTE AUTO 1.96 K/mm3 (0.84-5.20); LYMPHOCYTES PERCENT AUTO 12 % (21-46); MONOCYTES ABSOLUTE AUTO 1.06 K/mm3 (0.16-1.47); MONOCYTES PERCENT AUTO 7 % (4-13); Mean Corpuscular HGB 30.5 pg (26.0-34.0); Mean Corpuscular HGB Conc 33.6 g/dL (31.5-36.5); Mean Corpuscular Volume 91 fL (80-100); Mean Platelet Volume 9.8 fL (9.1-12.4); NEUTROPHILS ABSOLUTE AUTO 12.17 K/mm3 (1.96-9.15); NEUTROPHILS PERCENT AUTO 76 % (41-73); Platelet Count 299 K/mm3 (150-400); RDW Coefficient Variation 13.7 % (11.7-14.2); RDW Standard Deviation 45.9 fL (35.1-46.3); Red Blood Cell Count 4.88 M/mm3 (4.30-5.90); White Blood Cell Count 15.92 K/mm3 (4.00-11.30)
[2019-04-02 16:39] LABS: Alanine Aminotransfer (ALT/SGP 35 U/L (12-78); Albumin, Blood 3.7 g/dL (3.4-5.0); Albumin/Globulin Ratio 0.8 (0.8-1.8); Alk Phos 129 U/L (50-136); Anion Gap 6 mmol/L (6-16); Aspartate Aminotrans (AST/SGOT 27 U/L (12-37); Bilirubin, Total 0.9 mg/dL (0.1-1.0); Blood Urea Nitrogen 14 mg/dL (8-24); Bun/Creatinine Ratio 14.4 (12.0-20.0); CO2, Blood 22 mmol/L (21-32); Calcium, Blood 9.9 mg/dL (8.5-10.1); Chloride, Blood 108 mmol/L (98-108); Creatinine, Blood 0.97 mg/dL (0.60-1.20); Globulin, Blood 4.8 g/dL (2.2-4.0); Glomerular Filtration Rate >60 (60-); Glucose, Blood 128 mg/dL (70-99); Magnesium, Blood 2.8 mg/dL (1.6-2.4); Phosphorus, Blood 1.7 mg/dL (2.5-4.9); Potassium, Blood 3.6 mmol/L (3.5-5.5); Sodium, Blood 136 mmol/L (136-145); Total Protein, Blood 8.5 g/dL (6.4-8.2)
[2019-04-02 18:40] LABS: Appearance, Urine Clear (Clear); Bilirubin, Urine Neg (Neg); Blood, Urine 1+ (Neg); Color, Urine Yellow (P-Yellow); Glucose Qualitative, Urine Neg (Neg); Ketones, Urine 1+ (Neg); Leukocyte Esterase, Urine 1+ (Neg); Nitrite, Urine Neg (Neg); Protein, Urine 2+ (Neg); Specific Gravity, Urine 1.015 (1.003-1.022); Urobilinogen, Urine NORM (Normal); pH, Urine 6.5 (5.0-8.0)
[2019-04-02 18:48] LABS: Red Blood Cells, Urine 0-2 /hpf (0-2)
[2019-04-02 18:49] LABS: Bacteria Many /hpf; Mucus Light (0-Heavy); Squamous Epithelial Cells Rare /hpf (Few)
[2019-04-02] MEDS ORDERED: ONDA4ODT MM (19:49)
[2019-04-02] MEDS ORDERED: Norco 5-325 Ta1 EACH PO (19:49)
== END 2019-04-02 20:22 | disposition home or self-care (01) ==
LOC: ER 15:00
PROVIDERS: Emergency Medicine; Physician Assistant
DX: K85.90 Acute pancreatitis without necrosis or infection, unspecified (principal); F31.9 Bipolar disorder, unspecified; E03.9 Hypothyroidism, unspecified; G43.909 Migraine, unspecified, not intractable, without status migrainosus; G40.909 Epilepsy, unspecified, not intractable, without status epilepticus; Z79.899 Other long term (current) drug therapy; Z79.82 Long term (current) use of aspirin
CPT/HCPCS: 36415; 74176; 80053; 81001; 82140; 82150; 83605; 83690; 83735; 84100; 84484; 85025; 87086; 93005; 93010; 96361; 96374; 96375; 99284-25; A9270; A9270-GY; J1170; J2405; J7030

== ENCOUNTER 2019-07-14 16:09 | Emergency (ER) | payer OTHER ==
[~2019-07-14] VITALS: Ht 185.4 cm; Wt 108.0 kg
== END 2019-07-14 17:48 | disposition home or self-care (01) ==
LOC: ER 16:09
DX: H57.89 Other specified disorders of eye and adnexa (principal); E03.9 Hypothyroidism, unspecified; I50.9 Heart failure, unspecified; Z79.899 Other long term (current) drug therapy; Z79.82 Long term (current) use of aspirin
CPT/HCPCS: 99282

== ENCOUNTER → 2020-01-18 | Outpatient (CLI) | payer OTHER ==
[2020-01-18 16:00] LABS: BASOPHILS ABSOLUTE AUTO 0.11 K/mm3 (0.00-0.23); BASOPHILS PERCENT AUTO 1 % (0-2); EOSINOPHILS ABSOLUTE AUTO 0.56 K/mm3 (0.00-0.68); EOSINOPHILS PERCENT AUTO 6 % (0-6); Hematocrit 45.7 % (37.0-53.0); Hemoglobin 15.7 g/dL (13.5-17.5); IMMATURE GRAN ABSOLUTE AUTO 0.05 K/mm3 (0.00-0.10); IMMATURE GRAN PERCENT AUTO 1 % (0-1); LYMPHOCYTES PERCENT AUTO 28 % (21-46); MONOCYTES ABSOLUTE AUTO 0.52 K/mm3 (0.16-1.47); MONOCYTES PERCENT AUTO 5 % (4-13); Mean Corpuscular HGB 30.5 pg (26.0-34.0); Mean Corpuscular HGB Conc 34.4 g/dL (31.5-36.5); Mean Corpuscular Volume 89 fL (80-100); Mean Platelet Volume 10.3 fL (9.1-12.4); NEUTROPHILS ABSOLUTE AUTO 6.02 K/mm3 (1.96-9.15); NEUTROPHILS PERCENT AUTO 60 % (41-73); Platelet Count 218 K/mm3 (150-400); RDW Coefficient Variation 13.3 % (11.7-14.2); RDW Standard Deviation 43.5 fL (35.1-46.3); Red Blood Cell Count 5.14 M/mm3 (4.30-5.90); White Blood Cell Count 10.06 K/mm3 (4.00-11.30)
[2020-01-18 16:09] LABS: Albumin, Blood 4.4 g/dL (3.4-5.0); Albumin/Globulin Ratio 1.1 (0.8-1.8); Bilirubin, Total 0.5 mg/dL (0.1-1.0); Bun/Creatinine Ratio 15.7 (12.0-20.0); Calcium, Blood 9.6 mg/dL (8.5-10.1); Creatinine, Blood 1.27 mg/dL (0.60-1.20); Globulin, Blood 3.9 g/dL (2.2-4.0); Potassium, Blood 4.5 mmol/L (3.5-5.5); Total Protein, Blood 8.3 g/dL (6.4-8.2)
== END ==
LOC: LAB SHORT 15:30 → LAB EV 15:30
PROVIDERS: Physician Assistant
DX: R31.9 Hematuria, unspecified (principal)
CPT/HCPCS: 80053; 85025; 87086

== ENCOUNTER 2020-03-21 20:03 | Emergency (ER) | payer OTHER ==
[~2020-03-21] VITALS: Ht 185.4 cm; Wt 113.4 kg
[~2020-03-21 20:03] MED LIST changes: +Cipro250 MG PO; +FISH OIL 1,001000 M1 PO; +LEVSOD112 PO; -LEVSOD125 PO; +MIRALAX17 G2 PO
[2020-03-21 21:12] LABS: BASOPHILS ABSOLUTE AUTO 0.06 K/mm3 (0.00-0.23); BASOPHILS PERCENT AUTO 0 % (0-2); EOSINOPHILS ABSOLUTE AUTO 0.16 K/mm3 (0.00-0.68); EOSINOPHILS PERCENT AUTO 1 % (0-6); Hematocrit 43.7 % (37.0-53.0); Hemoglobin 14.7 g/dL (13.5-17.5); IMMATURE GRAN ABSOLUTE AUTO 0.09 K/mm3 (0.00-0.10); IMMATURE GRAN PERCENT AUTO 1 % (0-1); LYMPHOCYTES PERCENT AUTO 7 % (21-46); MONOCYTES ABSOLUTE AUTO 1.04 K/mm3 (0.16-1.47); MONOCYTES PERCENT AUTO 6 % (4-13); Mean Corpuscular HGB 30.4 pg (26.0-34.0); Mean Corpuscular HGB Conc 33.6 g/dL (31.5-36.5); Mean Corpuscular Volume 91 fL (80-100); Mean Platelet Volume 9.9 fL (9.1-12.4); NEUTROPHILS ABSOLUTE AUTO 15.41 K/mm3 (1.96-9.15); NEUTROPHILS PERCENT AUTO 85 % (41-73); Platelet Count 168 K/mm3 (150-400); RDW Standard Deviation 42.6 fL (35.1-46.3); Red Blood Cell Count 4.83 M/mm3 (4.30-5.90); White Blood Cell Count 18.06 K/mm3 (4.00-11.30)
[2020-03-21 21:33] LABS: Alanine Aminotransfer (ALT/SGP 31 U/L (12-78); Albumin, Blood 3.6 g/dL (3.4-5.0); Albumin/Globulin Ratio 0.8 (0.8-1.8); Alk Phos 105 U/L (50-136); Anion Gap 10 mmol/L (6-16); Aspartate Aminotrans (AST/SGOT 22 U/L (12-37); Bilirubin, Total 0.9 mg/dL (0.1-1.0); Blood Urea Nitrogen 14 mg/dL (8-24); Bun/Creatinine Ratio 13.6 (12.0-20.0); CO2, Blood 23 mmol/L (21-32); Calcium, Blood 9.3 mg/dL (8.5-10.1); Chloride, Blood 102 mmol/L (98-108); Creatinine, Blood 1.03 mg/dL (0.60-1.20); Globulin, Blood 4.3 g/dL (2.2-4.0); Glomerular Filtration Rate >60 (60-); Glucose, Blood 131 mg/dL (70-99); Potassium, Blood 3.4 mmol/L (3.5-5.5); Sodium, Blood 135 mmol/L (136-145); Total Protein, Blood 7.9 g/dL (6.4-8.2)
[2020-03-21] MEDS ORDERED: Roxicodone5 MG PO (22:06)
== END 2020-03-21 22:36 | disposition home or self-care (01) ==
LOC: ER 20:03
PROVIDERS: Emergency Medicine
DX: R10.9 Unspecified abdominal pain (principal); D72.829 Elevated white blood cell count, unspecified; Z79.82 Long term (current) use of aspirin; Z79.899 Other long term (current) drug therapy; E03.9 Hypothyroidism, unspecified; G40.909 Epilepsy, unspecified, not intractable, without status epilepticus; Z79.2 Long term (current) use of antibiotics; I50.9 Heart failure, unspecified
CPT/HCPCS: 80053; 83690; 85025; 96374; 96375; 99283-25; A9270; J1170; J2405

== ENCOUNTER 2020-07-24 09:35 | Day surgery (SDC) | payer OTHER ==
[~2020-07-24] VITALS: Ht 182.9 cm; Wt 232.2 kg
[~2020-07-24 09:35] MED LIST changes: +EMGALITY120 MG/1 M SC; +FERSU300 PO; +Roxicodone5 MG PO
== END 2020-07-24 11:49 | disposition home or self-care (01) ==
LOC: ORSCSDS 09:35
PROVIDERS: Internal Medicine Gastroenterology
PROC: 0DBL8ZX Excision of Transverse Colon, Via Natural or Artificial Opening Endoscopic, Diagnostic (ICD-10-PCS; principal; 2020-07-24 11:00)
DX: Z12.11 Encounter for screening for malignant neoplasm of colon (principal); D12.3 Benign neoplasm of transverse colon; K64.8 Other hemorrhoids; I10 Essential (primary) hypertension; I48.91 Unspecified atrial fibrillation; G47.33 Obstructive sleep apnea (adult) (pediatric); K21.9 Gastro-esophageal reflux disease without esophagitis; Z79.82 Long term (current) use of aspirin; F31.9 Bipolar disorder, unspecified; Z79.899 Other long term (current) drug therapy; Z86.73 Personal history of transient ischemic attack (TIA), and cerebral infarction without residual deficits
CPT/HCPCS: 82947; 88305; J2704; J7120

== ENCOUNTER 2020-09-24 09:26 | Inpatient (IN) | payer OTHER ==
[~2020-09-24] VITALS: Ht 188 cm; Wt 108.0 kg
[~2020-09-24 09:26] MED LIST changes: -BACL10 PO; -EMGALITY120 MG/1 M SC; -FERSU300 PO; -LAMO25 PO; -LEVSOD112 PO; -Lopressor 25 mg25 MG PO; -QUET100 PO; -ZONI100 PO
[2020-09-24 10:18] LABS: BASOPHILS ABSOLUTE AUTO 0.17 K/mm3 (0.00-0.23); BASOPHILS PERCENT AUTO 1 % (0-2); EOSINOPHILS ABSOLUTE AUTO 0.61 K/mm3 (0.00-0.68); EOSINOPHILS PERCENT AUTO 3 % (0-6); Hematocrit 50.5 % (37.0-53.0); Hemoglobin 15.9 g/dL (13.5-17.5); IMMATURE GRAN ABSOLUTE AUTO 0.24 K/mm3 (0.00-0.10); IMMATURE GRAN PERCENT AUTO 1 % (0-1); LYMPHOCYTES ABSOLUTE AUTO 6.78 K/mm3 (0.84-5.20); LYMPHOCYTES PERCENT AUTO 37 % (21-46); MONOCYTES ABSOLUTE AUTO 0.95 K/mm3 (0.16-1.47); MONOCYTES PERCENT AUTO 5 % (4-13); Mean Corpuscular HGB 30.8 pg (26.0-34.0); Mean Corpuscular HGB Conc 31.5 g/dL (31.5-36.5); Mean Corpuscular Volume 98 fL (80-100); NEUTROPHILS ABSOLUTE AUTO 9.52 K/mm3 (1.96-9.15); NEUTROPHILS PERCENT AUTO 52 % (41-73); Platelet Count 284 K/mm3 (150-400); RDW Coefficient Variation 14.1 % (11.7-14.2); RDW Standard Deviation 51.1 fL (35.1-46.3); Red Blood Cell Count 5.17 M/mm3 (4.30-5.90); White Blood Cell Count 18.27 K/mm3 (4.00-11.30)
[2020-09-24 10:20] LABS: Calcium, Ionized (POC) 1.21 mmol/L (1.10-1.46); Chloride (POC) 111 mmol/L (98-108); Glucose (ISTAT POC) 188 mg/dL (70-99); Hemoglobin (POC) 16.7 g/dL (13.5-17.5); Potassium (POC) 4.6 mmol/L (3.5-5.5); Sodium (POC) 140 mmol/L (135-148); Total CO2 (POC) 10 mmol/L (21-32)
[2020-09-24 10:33] LABS: Prothrombin Time Results 10.7 Sec (9.7-11.5)
[2020-09-24 10:40] LABS: Magnesium, Blood 2.6 mg/dL (1.6-2.4); Troponin I <0.015 ng/mL (0.000-0.040)
[2020-09-24 11:11] LABS: Base Excess Venous -11.1 mmol/L; Bicarbonate Venous 16.7 mmol/L (24.0-30.0); PCO2 Venous 34.2 mmHg (38-42); PO2 Venous 87.5 mmHg (38-42)
[2020-09-24 11:12] LABS: pH Blood Venous 7.27 (7.34-7.37)
[2020-09-24] MEDS ORDERED: PANT20 PO (11:23)
[2020-09-24 11:45] LABS: Alanine Aminotransfer (ALT/SGP 46 U/L (12-78); Albumin, Blood 4.2 g/dL (3.4-5.0); Alk Phos 147 U/L (50-136); Anion Gap 22 mmol/L (6-16); Aspartate Aminotrans (AST/SGOT 39 U/L (12-37); Bilirubin, Total 0.4 mg/dL (0.1-1.0); Blood Urea Nitrogen 17 mg/dL (8-24); Bun/Creatinine Ratio 16.2 (12.0-20.0); CO2, Blood 8 mmol/L (21-32); Calcium, Blood 9.2 mg/dL (8.5-10.1); Chloride, Blood 110 mmol/L (98-108); Creatinine, Blood 1.05 mg/dL (0.60-1.20); Globulin, Blood 4.3 g/dL (2.2-4.0); Glomerular Filtration Rate >60 (60-); Glucose, Blood 197 mg/dL (70-99); Potassium, Blood 4.6 mmol/L (3.5-5.5); Sodium, Blood 140 mmol/L (136-145); Total Protein, Blood 8.5 g/dL (6.4-8.2)
[2020-09-24] MEDS ORDERED: ZONI100 PO ×2 (12:51)
[2020-09-24] MEDS ORDERED: EMGALITY120 MG/1 M SC (12:52)
[2020-09-24] MEDS ORDERED: QUET100 PO (12:53)
[2020-09-24 12:54] LABS: U Amphetamine Screen Not Detected; U Barbituate Screen Not Detected; U Benzodiazapine Screen Not Detected; U Buprenorphine Screen Not Detected; U Cannabinoids Screen Not Detected; U Cocaine Screen Not Detected; U Methadone Screen Not Detected; U Methamphetamine Screen Not Detected; U Opiates Screen Not Detected; U Oxycodone Screen Not Detected; U Phencyclidine Screen Not Detected; U Propoxyphene Screen Not Detected
[2020-09-24] MEDS ORDERED: Lamotrigine25 M1 PO (12:54)
[2020-09-24] MEDS ORDERED: Lopressor 25 mg25 MG PO (12:55)
[2020-09-24] MEDS ORDERED: ATOR80 PO (12:56)
[2020-09-24] MEDS ORDERED: LEVSOD112 PO (12:56)
[2020-09-24] MEDS ORDERED: Aspir 8181 MG PO (12:56)
[2020-09-24] MEDS ORDERED: BACL10 PO (12:57)
[2020-09-24] MEDS ORDERED: CENTRUM SILVER1 EAC2 PO (12:58)
[2020-09-24] MEDS ORDERED: OMEGA-3 FISH O1 EAC6 PO (12:58)
[2020-09-24] MEDS ORDERED: FERSU300 PO (12:59)
[2020-09-24] MEDS ORDERED: MIRALAX17 G5 PO (12:59)
[2020-09-24 13:26] LABS: Source, Urine Clean Catch
[2020-09-24 13:29] LABS: Bilirubin, Urine Neg (Neg); Blood, Urine Neg (Neg); Glucose Qualitative, Urine Neg (Neg); Ketones, Urine Neg (Neg); Leukocyte Esterase, Urine Neg (Neg); Nitrite, Urine Neg (Neg); Protein, Urine 1+ (Neg); Urobilinogen, Urine NORM (Normal)
[2020-09-24 13:48] LABS: Appearance, Urine Clear (Clear); Color, Urine Yellow (P-Yellow)
--- NOTE | 2020-09-24 14:37 | NUR ---
ADMITTED PT ADMITTED TO ROOM 302. PT ORIENTED TO ROOM. SEIZURE PADS IN PLACE ON BED. SUCTION AT BEDSIDE. PT SATING AT 90% ON RA. 2L REAPPLIED TO PT VIA NC TO MAINTAIN OVER 92%. CALL LIGHT IN REACH. PT MEDICATED FOR PAIN. PT SLEEPY & RESTING IN BED. CONT PUSLE OX IN PLACE.
[2020-09-24] MEDS ORDERED: Vitamin D2000 UNIT PO (15:43)
--- NOTE | 2020-09-24 16:53 | NUR ---
SHIFT SUMMARY SINCE ADMITTED, PT HAS BEEN VERY DROWSY, SLEEPING IN ROOM IF LEFT ALONE. DURING ADMISSION PROCESS, PT FIGHTING SLEEP AND ALMOST FELL ASLEEP WHILE TALKING. PT CONTINUES TO COMPLAIN OF CHEST PAIN. ICE PROVIDED FOR COMFORT AND DR. EMERY NOTIFIED OF PERSISTANT CHEST PAIN. TORADOL IV ORDERED TO HELP WITH INFLAMATION & ADMINISTERED THE FIRST DOSE. WHEN COMPLAINING ABOUT PAIN, PT ASKED FOR DILADID BY NAME TO SEE IF THAT WAS A POSSIBILITY FOR PAIN RELIEF. PT MEDICATED WITH FENTANYL SINCE ARRIVAL TO UNIT, BUT STATES IT IS NOT HELPING AND HE NEEDS SOMETING ELSE. PT STATED THIS EVENING THAT HE NEEDED SOMETHING MORE POWERFUL FOR PAIN RELIEF, BUT STARTED SNORING EXTREMELY LOUD AFTER LEAVING THE ROOM A FEW MINUTES LATER. PT CURRENTLY SNORING IN ROOM. WAKING ONLY WHEN SOMEONE ENTERS THE ROOM. VS REVIEWED. NO SIGNS OF SEIZURE ACTIVITY. CIWA STABLE. PT UPDATED ON CARE AND NEW ROOM DURING HER VISIT.
--- NOTE | 2020-09-24 17:30 | NUR ---
REPORT RECIEVED FROM NICOLE CANTU. PT RESTING QUIETLY, APPEARS TO BE SNORING. NO ACUTE NEEDS OR CONCERNS AT THIS TIME.
[2020-09-24 17:41] LABS: Anion Gap 9 mmol/L (6-16); Blood Urea Nitrogen 17 mg/dL (8-24); Bun/Creatinine Ratio 18.5 (12.0-20.0); CO2, Blood 17 mmol/L (21-32); Calcium, Blood 8.3 mg/dL (8.5-10.1); Chloride, Blood 110 mmol/L (98-108); Creatinine, Blood 0.92 mg/dL (0.60-1.20); Glomerular Filtration Rate >60 (60-); Glucose, Blood 224 mg/dL (70-99); Potassium, Blood 4.1 mmol/L (3.5-5.5); Sodium, Blood 136 mmol/L (136-145)
--- NOTE | 2020-09-24 18:30 | NUR ---
SCDS AT BEDSIDE. PT APPEARS TO BE SLEEPING AT THIS TIME.
--- NOTE | 2020-09-24 22:16 | NUR ---
PT RESTING COMFORTABLY IN BED LOW FOWLERS; PT C/O CHEST/RIB PAIN NON RADIATING WHERE HE WAS CODED EARLIER TODAY IN EMERGENCY ROOM; PT IS ABLE TO TAKE DEEP BREATH AND COUGH LIGHTLY WITH ENCOURAGEMENT NOTED; ALERT AND ORIENTED X 4.
--- NOTE | 2020-09-25 04:05 | NUR ---
SHIFT SUMMARY: 60 Y/O MALE HAD RESTLESS NIGHT ALL SHIFT WITH MINIMAL SLEEP; PT C/O CHEST AND RIB PAIN AFTER GETTING CODED IN ER YESTERDAY WITH PAIN RATED 9/10; DILAUDID 2MG IVP GIVEN Q2H WITH ADEQUATE RELIEF NOTED; PT NPO; PT ABLE TO STAND AND URINATE VIA URINAL X 1 STANDBY ASSIST; TELEMETRY REFLECTS NSR WITH BBB PER [place]--GENERAL LABOR FORKLIFT OPERATOR; CIWA SCORE 3 ALL SHIFT; BED ALARM APPLIED FOR SAFETY; BED LOW POSITION WITH CALL LIGHT AT SIDE.
[2020-09-25 05:02] LABS: BASOPHILS ABSOLUTE AUTO 0.05 K/mm3 (0.00-0.23); BASOPHILS PERCENT AUTO 1 % (0-2); EOSINOPHILS ABSOLUTE AUTO 0.09 K/mm3 (0.00-0.68); EOSINOPHILS PERCENT AUTO 1 % (0-6); Hematocrit 41.1 % (37.0-53.0); Hemoglobin 13.4 g/dL (13.5-17.5); IMMATURE GRAN ABSOLUTE AUTO 0.02 K/mm3 (0.00-0.10); IMMATURE GRAN PERCENT AUTO 0 % (0-1); LYMPHOCYTES ABSOLUTE AUTO 1.02 K/mm3 (0.84-5.20); LYMPHOCYTES PERCENT AUTO 10 % (21-46); MONOCYTES ABSOLUTE AUTO 0.66 K/mm3 (0.16-1.47); MONOCYTES PERCENT AUTO 6 % (4-13); Mean Corpuscular HGB 30.2 pg (26.0-34.0); Mean Corpuscular HGB Conc 32.6 g/dL (31.5-36.5); Mean Corpuscular Volume 93 fL (80-100); Mean Platelet Volume 9.9 fL (9.1-12.4); NEUTROPHILS ABSOLUTE AUTO 8.46 K/mm3 (1.96-9.15); NEUTROPHILS PERCENT AUTO 82 % (41-73); Platelet Count 157 K/mm3 (150-400); RDW Coefficient Variation 14.4 % (11.7-14.2); RDW Standard Deviation 48.9 fL (35.1-46.3); Red Blood Cell Count 4.43 M/mm3 (4.30-5.90)
[2020-09-25 05:27] LABS: Alanine Aminotransfer (ALT/SGP 33 U/L (12-78); Albumin, Blood 3.3 g/dL (3.4-5.0); Alk Phos 112 U/L (50-136); Anion Gap 8 mmol/L (6-16); Aspartate Aminotrans (AST/SGOT 31 U/L (12-37); Bilirubin, Total 0.7 mg/dL (0.1-1.0); Blood Urea Nitrogen 14 mg/dL (8-24); Bun/Creatinine Ratio 15.7 (12.0-20.0); CO2, Blood 20 mmol/L (21-32); Calcium, Blood 7.8 mg/dL (8.5-10.1); Chloride, Blood 112 mmol/L (98-108); Creatinine, Blood 0.89 mg/dL (0.60-1.20); Globulin, Blood 3.4 g/dL (2.2-4.0); Glomerular Filtration Rate >60 (60-); Glucose, Blood 128 mg/dL (70-99); Potassium, Blood 3.9 mmol/L (3.5-5.5); Sodium, Blood 140 mmol/L (136-145); Total Protein, Blood 6.7 g/dL (6.4-8.2)
--- NOTE | 2020-09-25 18:15 | NUR ---
SHIFT SUMMARY- CALLED DR HUSTON, PT WAS REQUESTING ICE CHIPS, DIET ORDER RECIEVED FOR FULL LIQUID DIET. PT SEEMS TO BE TOLLERATING THIS WELL. ORDER RECIEVED TO ADVANCE DIET TOLLERATED. IF PT IS TOLLERATING PO INTAKE THEN POSSIBLE DISCHARGE TOMORROW. PT SPOUSE CAME IN AND SAT WITH THE PT FOR AN HOUR OR SO. PT WORKED WITH OT AND DID WELL STANDING AT THE BEDSIDE AND USING THE URINAL. PT PAIN SEEMS TO BE MUCH BETTER MANAGED WITH THE USE OF 2 PERCOCET AND THE TORADOL. PT IS GETTING UP TO THE BEDSIDE INDEPENDENTLY NOW WHERE BEFORE HE WAS REQUIRING ALOT OF ASSISTANCE. PT GOT HIMSELF BACK TO BED AFTER DINNER INDEPENDENTLY. THIS IS A GOOD IMPROVEMENT. PLAN FOR POSSIBLE DISCHARGE EARLY TOMORROW.
--- NOTE | 2020-09-26 03:39 | NUR ---
09/25/20 PT RESTING COMFORTABLY IN BED; CHEERFUL; PT ABLE TO AMBULATE BATHROOM AND BACK X 1 STANDBY ASSIST WITHOUT ISSUE.
--- NOTE | 2020-09-26 05:01 | NUR ---
SHIFT SUMMARY: 60 Y/O OBESE MALE RESTED COMFORTABLY ALL SHIFT; PT WAS ABLE TO TRANSFER AND AMBULATE TO BATHROOM AND BACK X 1 STANDBY ASSIST WITH GAIT SLOW AND STEADY; PT AT TIMES ASKS NURSING STAFF TO PERFORM TASKS THAT HE IS VERY CAPABLE OF DOING BY SELF TO INCLUDE HOLDING URINAL, GLASS OF WATER OR PULLING BLANKETS UP OVER SELF; PT C/O CHEST PAIN RATED 7/10 WITH PERCOCET 10MG PO GIVEN X 1 WITH GOOD RELIEF FELT; PTS O2 DISCONTINUED O2 SATS ARE MAINTAINING > 95%; ALERT AND ORIENTED X 4; BED LOW POSITION WITH CALL LIGHT AT SIDE.
[2020-09-26 05:24] LABS: BASOPHILS ABSOLUTE AUTO 0.07 K/mm3 (0.00-0.23); BASOPHILS PERCENT AUTO 1 % (0-2); EOSINOPHILS ABSOLUTE AUTO 0.51 K/mm3 (0.00-0.68); EOSINOPHILS PERCENT AUTO 5 % (0-6); Hematocrit 37.7 % (37.0-53.0); Hemoglobin 12.1 g/dL (13.5-17.5); IMMATURE GRAN ABSOLUTE AUTO 0.03 K/mm3 (0.00-0.10); IMMATURE GRAN PERCENT AUTO 0 % (0-1); LYMPHOCYTES ABSOLUTE AUTO 1.16 K/mm3 (0.84-5.20); LYMPHOCYTES PERCENT AUTO 12 % (21-46); MONOCYTES PERCENT AUTO 6 % (4-13); Mean Corpuscular HGB Conc 32.1 g/dL (31.5-36.5); Mean Corpuscular Volume 94 fL (80-100); NEUTROPHILS ABSOLUTE AUTO 7.36 K/mm3 (1.96-9.15); NEUTROPHILS PERCENT AUTO 76 % (41-73); Platelet Count 144 K/mm3 (150-400); RDW Coefficient Variation 14.5 % (11.7-14.2); RDW Standard Deviation 50.5 fL (35.1-46.3); Red Blood Cell Count 4.03 M/mm3 (4.30-5.90); White Blood Cell Count 9.73 K/mm3 (4.00-11.30)
[2020-09-26 05:53] LABS: Albumin, Blood 3.1 g/dL (3.4-5.0); Anion Gap 8 mmol/L (6-16); Blood Urea Nitrogen 9 mg/dL (8-24); Bun/Creatinine Ratio 10.4 (12.0-20.0); CO2, Blood 20 mmol/L (21-32); Chloride, Blood 112 mmol/L (98-108); Creatinine, Blood 0.87 mg/dL (0.60-1.20); Glomerular Filtration Rate >60 (60-); Glucose, Blood 110 mg/dL (70-99); Magnesium, Blood 2.7 mg/dL (1.6-2.4); Phosphorus, Blood 2.5 mg/dL (2.5-4.9); Potassium, Blood 3.9 mmol/L (3.5-5.5); Sodium, Blood 140 mmol/L (136-145)
[2020-09-26] MEDS ORDERED: LEVE500 PO (11:33)
[2020-09-26] MEDS ORDERED: LIDOCAINE1 EAC1 TOP (11:35)
[2020-09-26] MEDS ORDERED: Percocet 5-3251 EACH PO (11:35)
[2020-09-26] MEDS ORDERED: IBUP400 PO (11:35)
[2020-09-26] MEDS ORDERED: PANT20 PO (11:36)
[2020-09-26] MEDS ORDERED: CLOMIPRAMINE HC25 MG PO ×2 (12:27→12:28)
--- NOTE | 2020-09-26 14:25 | NUR ---
DISCHARGE SUMMARY: LATE ENTRY PATIENT AWOKE WITH A START THIS MORNING AND PULLED OUT HIS IV. PATIENT REPORTED HE THINKS HE WAS HAVING A BAD DREAM AND WAS DISORIENTED FOR A MINUTE. PATIENT ALERT AND ORIENTED X4 WITH SOME SHORT TERM MEMORY LOSS. PAIENT REPORTED SOME STERNAL PAIN RELATED TO THE CPR IN THE ED. PAIN CONTROLLED WITH EMAR PRNS. PATIENT DENIED ANY CHEST PAIN OR SEIZURE ACTIVITY. PATIENT DENIED ABDOMINAL PAIN OR GASTRIC UPSET/CRAMPING. PATIENT TOLERATED FULL LIQUID WITHOUT ANY ABDOMINAL DISCOMFORT OR NAUSEA. PATIENT DISCHARGE RX SENT TO [facility] PER REQUEST. PATIENT'S SPOUSE PROVIDED WITH PHYSICAL SCRIPT FOR PERCOCET. DISCHARGE INSTRUCTIONS AND EDUCATIO PROVIDED. ALL QUESTIONS AND CONCERNS ADDRESSED. PATIENT DISCHARGED WITH RN IN WHEELCHAIR. PATIENT STABLE AT TIME OF DISCHARGE.
== END 2020-09-26 12:35 | disposition home health service (06) | DRG 438 ==
LOC: ER 09:26 → MEDS 12:47
PROVIDERS: Emergency Medicine; Internal Medicine; Nurse Practitioner Acute Care; ADMIT Internal Medicine
DX: K85.20 Alcohol induced acute pancreatitis without necrosis or infection (principal); I46.9 Cardiac arrest, cause unspecified; R65.10 Systemic inflammatory response syndrome (SIRS) of non-infectious origin without acute organ dysfunction; E87.2 Acidosis; I25.10 Atherosclerotic heart disease of native coronary artery without angina pectoris; G40.409 Other generalized epilepsy and epileptic syndromes, not intractable, without status epilepticus; E03.9 Hypothyroidism, unspecified; F10.20 Alcohol dependence, uncomplicated; G47.33 Obstructive sleep apnea (adult) (pediatric); G43.909 Migraine, unspecified, not intractable, without status migrainosus; F31.9 Bipolar disorder, unspecified; E66.01 Morbid (severe) obesity due to excess calories; D50.9 Iron deficiency anemia, unspecified; F09 Unspecified mental disorder due to known physiological condition; R26.9 Unspecified abnormalities of gait and mobility; Z74.09 Other reduced mobility; Z95.1 Presence of aortocoronary bypass graft; Z79.899 Other long term (current) drug therapy; Z79.82 Long term (current) use of aspirin; Z68.30 Body mass index [BMI] 30.0-30.9, adult; Z86.19 Personal history of other infectious and parasitic diseases
CPT/HCPCS: 36415; 70450; 71045; 74176; 80047; 80048; 80053; 80069; 80175; 80203; 82803; 83605; 83690; 83735; 83880; 84443; 84484; 85014; 85025; 85610; 92950; 93005; 93010; 94762; 96361-59; 96365-59; 96375-59; 96376; 97116; 97161; 97166; 97530; 97535; 99285-25; A9270; A9270-GY; C9113; G0480; J1650; J1885; J1953; J2060; J3010; J3411; J3475; J7030; J7042

== ENCOUNTER → 2021-01-18 | Outpatient (CLI) | payer OTHER ==
[~2021-01-18] MED LIST changes: +Aspir 8181 MG PO; +BACL10 PO; +CENTRUM SILVER1 EAC2 PO; +CLOMIPRAMINE HC25 MG PO; +EMGALITY120 MG/1 M SC; +FERSU300 PO; +IBUP400 PO; +LEVSOD112 PO; +LIDOCAINE1 EAC1 TOP; +Lamotrigine25 M1 PO; +Lopressor 25 mg25 MG PO; +MIRALAX17 G5 PO; +OMEGA-3 FISH O1 EAC6 PO; +Percocet 5-3251 EACH PO; +QUET100 PO; +Vitamin D2000 UNIT PO; +ZONI100 PO
== END | disposition home or self-care (01) ==
LOC: LAB SHORT 11:40
DX: R39.15 Urgency of urination (principal)
CPT/HCPCS: 87086

== ENCOUNTER 2021-02-15 15:45 | Inpatient (IN) | payer MEDICARE, SELFPAY, OTHER ==
[~2021-02-15] VITALS: Ht 185.4 cm; Wt 110.0 kg
[~2021-02-15 15:45] MED LIST changes: -Aspir 8181 MG PO; -CENTRUM SILVER1 EAC2 PO; -FERSU300 PO; -LEVSOD112 PO; -Lamotrigine25 M1 PO; -Lopressor 25 mg25 MG PO; -MIRALAX17 G5 PO; -OMEGA-3 FISH O1 EAC6 PO; -QUET100 PO; -Vitamin D2000 UNIT PO
[2021-02-15 16:42] LABS: BASOPHILS ABSOLUTE AUTO 0.06 K/mm3 (0.00-0.23); BASOPHILS PERCENT AUTO 0 % (0-2); EOSINOPHILS PERCENT AUTO 0 % (0-6); Hematocrit 48.7 % (37.0-53.0); Hemoglobin 16.5 g/dL (13.5-17.5); IMMATURE GRAN ABSOLUTE AUTO 0.07 K/mm3 (0.00-0.10); IMMATURE GRAN PERCENT AUTO 1 % (0-1); LYMPHOCYTES ABSOLUTE AUTO 1.34 K/mm3 (0.84-5.20); LYMPHOCYTES PERCENT AUTO 9 % (21-46); MONOCYTES ABSOLUTE AUTO 0.38 K/mm3 (0.16-1.47); MONOCYTES PERCENT AUTO 3 % (4-13); Mean Corpuscular HGB 30.4 pg (26.0-34.0); Mean Corpuscular HGB Conc 33.9 g/dL (31.5-36.5); Mean Corpuscular Volume 90 fL (80-100); NEUTROPHILS ABSOLUTE AUTO 13.52 K/mm3 (1.96-9.15); NEUTROPHILS PERCENT AUTO 88 % (41-73); Platelet Count 299 K/mm3 (150-400); RDW Coefficient Variation 13.1 % (11.7-14.2); RDW Standard Deviation 42.6 fL (35.1-46.3); Red Blood Cell Count 5.43 M/mm3 (4.30-5.90); White Blood Cell Count 15.37 K/mm3 (4.00-11.30)
[2021-02-15 17:49] LABS: Alanine Aminotransfer (ALT/SGP 74 U/L (12-78); Albumin, Blood 4.4 g/dL (3.4-5.0); Albumin/Globulin Ratio 1.1 (0.8-1.8); Alk Phos 127 U/L (50-136); Anion Gap 7 mmol/L (6-16); Aspartate Aminotrans (AST/SGOT 54 U/L (12-37); Bilirubin, Total 0.6 mg/dL (0.1-1.0); Blood Urea Nitrogen 22 mg/dL (8-24); Bun/Creatinine Ratio 22.9 (12.0-20.0); CO2, Blood 22 mmol/L (21-32); Calcium, Blood 9.8 mg/dL (8.5-10.1); Chloride, Blood 107 mmol/L (98-108); Creatinine, Blood 0.96 mg/dL (0.60-1.20); Globulin, Blood 4.1 g/dL (2.2-4.0); Glomerular Filtration Rate >60 (60-); Glucose, Blood 223 mg/dL (70-99); Potassium, Blood 4.6 mmol/L (3.5-5.5); Sodium, Blood 136 mmol/L (136-145); Total Protein, Blood 8.5 g/dL (6.4-8.2)
[2021-02-15] MEDS ORDERED: CLOMIPRAMINE HC25 MG PO (19:52)
[2021-02-15] MEDS ORDERED: Lamotrigine25 M1 PO (19:53)
[2021-02-15] MEDS ORDERED: Monodox100 MG PO (19:53)
[2021-02-15] MEDS ORDERED: Lopressor 25 mg25 MG PO (19:54)
[2021-02-15] MEDS ORDERED: QUET100 PO (19:54)
[2021-02-15] MEDS ORDERED: LEVSOD112 PO (19:55)
[2021-02-15] MEDS ORDERED: ZONI100 PO (19:55)
[2021-02-15] MEDS ORDERED: PANT20 PO (19:56)
[2021-02-15] MEDS ORDERED: FERSU300 PO (20:05)
[2021-02-15] MEDS ORDERED: Aspir 8181 MG PO (20:13)
[2021-02-15] MEDS ORDERED: ATOR80 PO (20:13)
[2021-02-15] MEDS ORDERED: OMEGA-3 FISH O1 EAC6 PO (20:13)
[2021-02-15] MEDS ORDERED: MIRALAX17 G5 PO (20:14)
[2021-02-15] MEDS ORDERED: Vitamin D2000 UNIT PO (20:14)
[2021-02-15] MEDS ORDERED: CENTRUM SILVER1 EAC2 PO (20:14)
[2021-02-15] MEDS ORDERED: CYCL10 PO (20:17)
[2021-02-16 04:39] LABS: CHOL/HDL RATIO 2.8; Cholesterol 122 mg/dL (50-200); HDL Cholesterol 43 mg/dL (>39); LDL/HDL RATIO 1.3; Low Density Lipoprotein Chol 58 mg/dL (0-110); Triglycerides 106 mg/dL (30-160); Very Low Density Lipoprot Chol 21 mg/dL (6-32)
[2021-02-16 13:02] LABS: Percent Saturation 16.2 % (20.0-50.0)
[2021-02-17 04:49] LABS: BASOPHILS ABSOLUTE AUTO 0.07 K/mm3 (0.00-0.23); BASOPHILS PERCENT AUTO 1 % (0-2); EOSINOPHILS ABSOLUTE AUTO 0.26 K/mm3 (0.00-0.68); EOSINOPHILS PERCENT AUTO 2 % (0-6); Hematocrit 42.2 % (37.0-53.0); Hemoglobin 13.8 g/dL (13.5-17.5); IMMATURE GRAN ABSOLUTE AUTO 0.03 K/mm3 (0.00-0.10); IMMATURE GRAN PERCENT AUTO 0 % (0-1); LYMPHOCYTES ABSOLUTE AUTO 1.85 K/mm3 (0.84-5.20); LYMPHOCYTES PERCENT AUTO 15 % (21-46); MONOCYTES PERCENT AUTO 9 % (4-13); Mean Corpuscular HGB 30.4 pg (26.0-34.0); Mean Corpuscular HGB Conc 32.7 g/dL (31.5-36.5); Mean Corpuscular Volume 93 fL (80-100); Mean Platelet Volume 9.9 fL (9.1-12.4); NEUTROPHILS ABSOLUTE AUTO 8.97 K/mm3 (1.96-9.15); NEUTROPHILS PERCENT AUTO 73 % (41-73); Platelet Count 172 K/mm3 (150-400); RDW Coefficient Variation 13.2 % (11.7-14.2); RDW Standard Deviation 45.2 fL (35.1-46.3); Red Blood Cell Count 4.54 M/mm3 (4.30-5.90); White Blood Cell Count 12.28 K/mm3 (4.00-11.30)
[2021-02-17 05:13] LABS: Alanine Aminotransfer (ALT/SGP 42 U/L (12-78); Albumin, Blood 3.6 g/dL (3.4-5.0); Albumin/Globulin Ratio 1.1 (0.8-1.8); Alk Phos 91 U/L (50-136); Anion Gap 5 mmol/L (6-16); Aspartate Aminotrans (AST/SGOT 29 U/L (12-37); Bilirubin, Total 0.8 mg/dL (0.1-1.0); Blood Urea Nitrogen 19 mg/dL (8-24); Bun/Creatinine Ratio 19.3 (12.0-20.0); CO2, Blood 24 mmol/L (21-32); Calcium, Blood 8.5 mg/dL (8.5-10.1); Chloride, Blood 107 mmol/L (98-108); Creatinine, Blood 0.99 mg/dL (0.60-1.20); Globulin, Blood 3.3 g/dL (2.2-4.0); Glomerular Filtration Rate >60 (60-); Glucose, Blood 117 mg/dL (70-99); Potassium, Blood 4.4 mmol/L (3.5-5.5); Sodium, Blood 136 mmol/L (136-145); Total Protein, Blood 6.9 g/dL (6.4-8.2)
[2021-02-18 04:31] LABS: Hematocrit 38.6 % (37.0-53.0); Mean Corpuscular HGB 30.9 pg (26.0-34.0); Mean Corpuscular HGB Conc 33.7 g/dL (31.5-36.5); Mean Corpuscular Volume 92 fL (80-100); Mean Platelet Volume 9.7 fL (9.1-12.4); Platelet Count 142 K/mm3 (150-400); RDW Coefficient Variation 12.8 % (11.7-14.2); RDW Standard Deviation 42.7 fL (35.1-46.3); Red Blood Cell Count 4.21 M/mm3 (4.30-5.90); White Blood Cell Count 8.45 K/mm3 (4.00-11.30)
[2021-02-18 04:48] LABS: Anion Gap 5 mmol/L (6-16); Blood Urea Nitrogen 13 mg/dL (8-24); Bun/Creatinine Ratio 13.1 (12.0-20.0); CO2, Blood 24 mmol/L (21-32); Calcium, Blood 8.5 mg/dL (8.5-10.1); Chloride, Blood 107 mmol/L (98-108); Creatinine, Blood 0.99 mg/dL (0.60-1.20); Glomerular Filtration Rate >60 (60-); Glucose, Blood 124 mg/dL (70-99); Magnesium, Blood 2.5 mg/dL (1.6-2.4); Potassium, Blood 3.6 mmol/L (3.5-5.5); Sodium, Blood 136 mmol/L (136-145)
[2021-02-18] MEDS ORDERED: OXAYDO5 M1 PO (14:27)
== END 2021-02-18 14:49 | disposition home or self-care (01) | DRG 439 ==
LOC: ER 15:45 → MEDS 21:26 → ER 21:26 → ICUW 21:26 → MEDS 21:33
PROVIDERS: Internal Medicine; Physician Assistant; ADMIT Internal Medicine
DX: K85.20 Alcohol induced acute pancreatitis without necrosis or infection (principal); N39.0 Urinary tract infection, site not specified; R65.10 Systemic inflammatory response syndrome (SIRS) of non-infectious origin without acute organ dysfunction; K56.0 Paralytic ileus; Z79.82 Long term (current) use of aspirin; G40.909 Epilepsy, unspecified, not intractable, without status epilepticus; E03.9 Hypothyroidism, unspecified; F31.9 Bipolar disorder, unspecified; G43.909 Migraine, unspecified, not intractable, without status migrainosus; Z90.49 Acquired absence of other specified parts of digestive tract; Z95.5 Presence of coronary angioplasty implant and graft; I10 Essential (primary) hypertension; Z95.2 Presence of prosthetic heart valve; F20.9 Schizophrenia, unspecified
CPT/HCPCS: 36415; 74177; 80048; 80053; 80061; 82728; 83540; 83550; 83690; 83735; 84484; 85025; 85027; 93005; 93010; 96374; 96375; 96376; 99285-25; A9270; J1170; J1650; J2270; J2405; J7030; Q9967

== ENCOUNTER 2021-06-06 15:18 | Inpatient (IN) | payer MEDICARE ==
[~2021-06-06] VITALS: Ht 185.4 cm; Wt 111.1 kg
[~2021-06-06 15:18] MED LIST changes: +Aspir 8181 MG PO; +CENTRUM SILVER1 EAC2 PO; +CYCL10 PO; +FERSU300 PO; +LEVSOD112 PO; +Lamotrigine25 M1 PO; +Lopressor 25 mg25 MG PO; +MIRALAX17 G5 PO; +Monodox100 MG PO; +OMEGA-3 FISH O1 EAC6 PO; +OXAYDO5 M1 PO; +QUET100 PO; +Vitamin D2000 UNIT PO
[2021-06-06 16:01] LABS: BASOPHILS ABSOLUTE AUTO 0.06 K/mm3 (0.00-0.23); BASOPHILS PERCENT AUTO 1 % (0-2); EOSINOPHILS ABSOLUTE AUTO 0.12 K/mm3 (0.00-0.68); EOSINOPHILS PERCENT AUTO 1 % (0-6); Hematocrit 49.1 % (37.0-53.0); Hemoglobin 16.6 g/dL (13.5-17.5); IMMATURE GRAN ABSOLUTE AUTO 0.05 K/mm3 (0.00-0.10); IMMATURE GRAN PERCENT AUTO 0 % (0-1); LYMPHOCYTES ABSOLUTE AUTO 1.63 K/mm3 (0.84-5.20); LYMPHOCYTES PERCENT AUTO 12 % (21-46); MONOCYTES ABSOLUTE AUTO 0.55 K/mm3 (0.16-1.47); MONOCYTES PERCENT AUTO 4 % (4-13); Mean Corpuscular HGB 30.1 pg (26.0-34.0); Mean Corpuscular HGB Conc 33.8 g/dL (31.5-36.5); Mean Corpuscular Volume 89 fL (80-100); Mean Platelet Volume 9.6 fL (9.1-12.4); NEUTROPHILS ABSOLUTE AUTO 10.79 K/mm3 (1.96-9.15); NEUTROPHILS PERCENT AUTO 82 % (41-73); Platelet Count 208 K/mm3 (150-400); RDW Coefficient Variation 13.6 % (11.7-14.2); RDW Standard Deviation 44.3 fL (35.1-46.3); Red Blood Cell Count 5.52 M/mm3 (4.30-5.90)
[2021-06-06 16:17] LABS: Alanine Aminotransfer (ALT/SGP 52 U/L (12-78); Albumin, Blood 4.2 g/dL (3.4-5.0); Albumin/Globulin Ratio 1.1 (0.8-1.8); Alk Phos 123 U/L (50-136); Anion Gap 8 mmol/L (6-16); Aspartate Aminotrans (AST/SGOT 41 U/L (12-37); Bilirubin, Total 0.6 mg/dL (0.1-1.0); Blood Urea Nitrogen 19 mg/dL (8-24); Bun/Creatinine Ratio 19.8 (12.0-20.0); CO2, Blood 19 mmol/L (21-32); Calcium, Blood 9.6 mg/dL (8.5-10.1); Chloride, Blood 110 mmol/L (98-108); Creatinine, Blood 0.96 mg/dL (0.60-1.20); Globulin, Blood 3.9 g/dL (2.2-4.0); Glomerular Filtration Rate >60 (60-); Glucose, Blood 158 mg/dL (70-99); Potassium, Blood 4.4 mmol/L (3.5-5.5); Sodium, Blood 137 mmol/L (136-145); Total Protein, Blood 8.1 g/dL (6.4-8.2)
[2021-06-06 17:35] LABS: Troponin I <0.015 ng/mL (0.000-0.040)
[2021-06-06 18:28] LABS: CHOL/HDL RATIO 2.7; Cholesterol 140 mg/dL (50-200); HDL Cholesterol 52 mg/dL (>39); LDL/HDL RATIO 1.3; Low Density Lipoprotein Chol 67 mg/dL (0-110); Triglycerides 104 mg/dL (30-160); Very Low Density Lipoprot Chol 20 mg/dL (6-32)
[2021-06-06 20:02] LABS: SARS-Cov-2 (COVID-19) PCR, MMC NEGATIVE (NEGATIVE)
[2021-06-07 04:50] LABS: BASOPHILS ABSOLUTE AUTO 0.05 K/mm3 (0.00-0.23); BASOPHILS PERCENT AUTO 1 % (0-2); EOSINOPHILS ABSOLUTE AUTO 0.12 K/mm3 (0.00-0.68); EOSINOPHILS PERCENT AUTO 1 % (0-6); Hematocrit 45.8 % (37.0-53.0); Hemoglobin 15.4 g/dL (13.5-17.5); IMMATURE GRAN ABSOLUTE AUTO 0.04 K/mm3 (0.00-0.10); IMMATURE GRAN PERCENT AUTO 0 % (0-1); LYMPHOCYTES ABSOLUTE AUTO 1.38 K/mm3 (0.84-5.20); LYMPHOCYTES PERCENT AUTO 14 % (21-46); MONOCYTES PERCENT AUTO 7 % (4-13); Mean Corpuscular HGB 30.9 pg (26.0-34.0); Mean Corpuscular HGB Conc 33.6 g/dL (31.5-36.5); Mean Corpuscular Volume 92 fL (80-100); Mean Platelet Volume 9.4 fL (9.1-12.4); NEUTROPHILS ABSOLUTE AUTO 7.91 K/mm3 (1.96-9.15); NEUTROPHILS PERCENT AUTO 78 % (41-73); Platelet Count 169 K/mm3 (150-400); RDW Coefficient Variation 13.8 % (11.7-14.2); RDW Standard Deviation 46.8 fL (35.1-46.3); Red Blood Cell Count 4.99 M/mm3 (4.30-5.90)
--- NOTE | 2021-06-07 04:52 | NUR ---
SHIFT SUMMARY PT IS A FULL CODE ADMITTED FOR ACUTE PANCREATITIS. PT IS NPO, C/O ABDOMINAL PAIN THROUGHTOUT SHIFT. MEDUICATED TWICE. NO DISTRESS NOTED. AAOX4. ABLE TO MAKE NEEDS KNOWN. ON CIWA Q2. NO SIGNS OF ALCOHOL WITHDRAWLS DURING THIS SHIFT.
--- NOTE | 2021-06-07 19:44 | NUR ---
SHIFT SUMMARY: NO ACUTE EVENTS TO REPORT THIS SHIFT. PT HX TBI; MOOD LABILE; COOPERATIVE WITH CARE. MEDICATED FOR ABD PAIN & NAUSEA PER EMAR. FLUIDS CONTINUING. REPORT GIVEN TO ONCOMING RN.
--- NOTE | 2021-06-08 04:31 | NUR ---
SHIFT SUMMARY PT ADMITTED FOR PANCREATITIS. THE PLAN IS TO CONTROL PAIN AND KEEP PT NPO. PT PAIN HAS DECREASE FROM LAST NIGHT. NO DISTRESS NOTED. PT ABLE TO MAKE NEEDS KNOWN. CALL LIGHT IN REACH.
[2021-06-08 05:50] LABS: Hematocrit 38.9 % (37.0-53.0); Hemoglobin 13.1 g/dL (13.5-17.5); Mean Corpuscular HGB 30.7 pg (26.0-34.0); Mean Corpuscular HGB Conc 33.7 g/dL (31.5-36.5); Mean Corpuscular Volume 91 fL (80-100); Mean Platelet Volume 9.8 fL (9.1-12.4); Platelet Count 150 K/mm3 (150-400); RDW Coefficient Variation 14.1 % (11.7-14.2); Red Blood Cell Count 4.27 M/mm3 (4.30-5.90); White Blood Cell Count 9.75 K/mm3 (4.00-11.30)
[2021-06-08 06:21] LABS: Alanine Aminotransfer (ALT/SGP 29 U/L (12-78); Albumin, Blood 3.2 g/dL (3.4-5.0); Alk Phos 94 U/L (50-136); Anion Gap 4 mmol/L (6-16); Aspartate Aminotrans (AST/SGOT 20 U/L (12-37); Bilirubin, Total 0.8 mg/dL (0.1-1.0); Blood Urea Nitrogen 13 mg/dL (8-24); Bun/Creatinine Ratio 12.6 (12.0-20.0); CO2, Blood 23 mmol/L (21-32); Calcium, Blood 8.2 mg/dL (8.5-10.1); Chloride, Blood 110 mmol/L (98-108); Creatinine, Blood 1.03 mg/dL (0.60-1.20); Globulin, Blood 3.2 g/dL (2.2-4.0); Glomerular Filtration Rate >60 (60-); Glucose, Blood 90 mg/dL (70-99); Sodium, Blood 137 mmol/L (136-145); Total Protein, Blood 6.4 g/dL (6.4-8.2)
--- NOTE | 2021-06-08 18:35 | NUR ---
SHIFT SUMMARY: NO ACUTE CHANGES TO REPORT THIS SHIFT. PT A&O; HX TBI & BIPOLAR; IRRITABLE; COOPERATIVE WITH CARE. MEDICATED FOR ABD PAIN PER EMAR. DIET ADVANCED TO LOW FAT THIS SHIFT; PT TOLERATING WELL. WCTM.
--- NOTE | 2021-06-08 19:00 | NUR ---
ASSUMED CARE RECEIVED REPORT FROM NICOLE EVANGELISTA. PT RESTING, IN NAD. NO ACUTE NEEDS ASSESSED AT THIS TIME. CALL LIGHT IN REACH.
--- NOTE | 2021-06-08 23:30 | NUR ---
THIS RN IN PT ROOM, ASSESSING PT'S PAIN. PT STATES IT'S 5/10, REQUESTING IV DILAUDID. PT APPEARS COMFORTABLE, NO GUARDING OR GRIMACING NOTED, FACE SCALE OF 1. WILL NOTIFY PROVIDER.
--- NOTE | 2021-06-09 00:20 | NUR ---
SPOKE TO DR. ESQUIVEL REGARDING PT'S REQUEST FOR ADDITIONAL PAIN MEDS. STATED TO NOT GIVE ANY ADDITIONAL PAIN MEDICATION OUTSIDE OF ESTABLISHED PARAMETERS. NO OTHER ORDERS RECEIVED. SIMEON.
--- NOTE | 2021-06-09 05:58 | NUR ---
SHIFT SUMMARY PT RESTING, IN NAD. VS REVIEWED,WNL. PT APPEARED TO SLEEP WELL OVERNIGHT. PAIN MANAGED PER EMAR, WITH GOOD EFFECT. NO OTHER ACUTE CONCERNS TO REPORT OVERNIGHT. NO ACUTE NEEDS ASSESSED AT THIS TIME. TOLERATING LOW-FAT DIET WELL. CALL LIGHT, POSSESSIONS IN REACH, BED IN LOW AND LOCKED POSITION. WILL REPORT OFF TO ONCOMING RN.
[2021-06-09] MEDS ORDERED: Percocet 5-3251 EACH PO (10:58)
--- NOTE | 2021-06-09 11:42 | NUR ---
DISCHARGE INSTRUCTIONS EXPLAINED TO THE PATIENT. ALL QUESTIONS ANSWERED. IV REMOVED. HARD-SCRIPT OF PERCOCET GIVEN TO PATIENT. PATIENT DISCHARGED HOME AT 1140 WITH ICE CREAM CHEF ESCORT IN W/C. TO GRAPHICS SOFTWARE ENGINEER PATIENT.
== END 2021-06-09 11:40 | disposition home or self-care (01) | DRG 439 ==
LOC: ER 15:18 → MEDS 15:19 → ER 16:32 → MEDS 20:24
PROVIDERS: Internal Medicine; Physician Assistant; ADMIT Hospitalist
DX: K85.20 Alcohol induced acute pancreatitis without necrosis or infection (principal); I50.32 Chronic diastolic (congestive) heart failure; Z20.822 Contact with and (suspected) exposure to COVID-19; F10.20 Alcohol dependence, uncomplicated; G40.909 Epilepsy, unspecified, not intractable, without status epilepticus; E03.9 Hypothyroidism, unspecified; I25.10 Atherosclerotic heart disease of native coronary artery without angina pectoris; I11.0 Hypertensive heart disease with heart failure; K59.00 Constipation, unspecified; Z71.41 Alcohol abuse counseling and surveillance of alcoholic; F31.9 Bipolar disorder, unspecified; G43.909 Migraine, unspecified, not intractable, without status migrainosus; Z95.1 Presence of aortocoronary bypass graft; Z98.890 Other specified postprocedural states
CPT/HCPCS: 36415; 76705; 80053; 80061; 83690; 84145; 84484; 85025; 85027; 93005; 93010; 96374; 96375; 96376; 99285-25; A9270; C1751; G0378; G0480; J1170; J1650; J2405; J3010; J7030; U0004

== ENCOUNTER → 2021-06-16 | Outpatient (CLI) | payer MEDICARE | LOC: LAB 07:28 → LAB SHORT 07:28 | DX: L57.0 Actinic keratosis (principal); C44.41 Basal cell carcinoma of skin of scalp and neck | CPT/HCPCS: 88342 ==

== ENCOUNTER 2021-06-24 08:21 | Emergency (ER) | payer MEDICARE ==
[~2021-06-24] VITALS: Ht 185.4 cm; Wt 108.9 kg
[2021-06-24] MEDS ORDERED: Percocet 5-3251 EACH PO (10:45)
== END 2021-06-24 10:58 | disposition home or self-care (01) ==
LOC: ER 08:21
DX: M54.5 Low back pain (principal); G40.909 Epilepsy, unspecified, not intractable, without status epilepticus; G43.909 Migraine, unspecified, not intractable, without status migrainosus; E03.9 Hypothyroidism, unspecified; Z79.899 Other long term (current) drug therapy; Z79.82 Long term (current) use of aspirin; W01.0XXA Fall on same level from slipping, tripping and stumbling without subsequent striking against object, initial encounter
CPT/HCPCS: 72100; 72220; 96372; 99283-25; J1170

== ENCOUNTER 2022-06-03 08:06 | Emergency (ER) | payer MEDICARE ==
[~2022-06-03] VITALS: Ht 185.4 cm; Wt 112.5 kg
== END 2022-06-03 11:45 | disposition home or self-care (01) ==
LOC: ER 08:06
DX: T18.8XXA Foreign body in other parts of alimentary tract, initial encounter (principal); E03.9 Hypothyroidism, unspecified; I50.9 Heart failure, unspecified; Z95.1 Presence of aortocoronary bypass graft; Z79.899 Other long term (current) drug therapy; Z79.82 Long term (current) use of aspirin
CPT/HCPCS: 71045; 74018

== ENCOUNTER 2022-07-16 18:13 | Emergency (ER) | payer MEDICARE ==
[~2022-07-16] VITALS: Ht 182.9 cm; Wt 111.1 kg
[2022-07-16 19:40] LABS: BASOPHILS ABSOLUTE AUTO 0.04 K/mm3 (0.00-0.23); BASOPHILS PERCENT AUTO 0 % (0-2); EOSINOPHILS ABSOLUTE AUTO 0.22 K/mm3 (0.00-0.68); EOSINOPHILS PERCENT AUTO 2 % (0-6); Hematocrit 41.8 % (37.0-53.0); Hemoglobin 14.4 g/dL (13.5-17.5); IMMATURE GRAN ABSOLUTE AUTO 0.08 K/mm3 (0.00-0.10); IMMATURE GRAN PERCENT AUTO 1 % (0-1); LYMPHOCYTES ABSOLUTE AUTO 0.99 K/mm3 (0.84-5.20); LYMPHOCYTES PERCENT AUTO 8 % (21-46); MONOCYTES ABSOLUTE AUTO 0.55 K/mm3 (0.16-1.47); MONOCYTES PERCENT AUTO 4 % (4-13); Mean Corpuscular HGB 30.8 pg (26.0-34.0); Mean Corpuscular HGB Conc 34.4 g/dL (31.5-36.5); Mean Corpuscular Volume 90 fL (80-100); NEUTROPHILS ABSOLUTE AUTO 10.72 K/mm3 (1.96-9.15); NEUTROPHILS PERCENT AUTO 85 % (41-73); RDW Coefficient Variation 13.8 % (11.7-14.2); RDW Standard Deviation 44.5 fL (35.1-46.3); Red Blood Cell Count 4.67 M/mm3 (4.30-5.90)
[2022-07-16 19:52] LABS: Albumin, Blood 3.9 g/dL (3.4-5.0); Bilirubin, Total 1.9 mg/dL (0.1-1.0); Bun/Creatinine Ratio 19.3 (12.0-20.0); Calcium, Blood 9.4 mg/dL (8.5-10.1); Creatinine, Blood 0.83 mg/dL (0.60-1.20); Potassium, Blood 4.5 mmol/L (3.5-5.5); Total Protein, Blood 7.9 g/dL (6.4-8.2)
[2022-07-16 19:58] LABS: Platelet Count 188 K/mm3 (150-400)
[2022-07-16] MEDS ORDERED: FOSAMAX70 MG PO (20:31)
[2022-07-16] MEDS ORDERED: OXAYDO5 M1 PO (23:11)
== END 2022-07-16 23:59 | disposition home or self-care (01) ==
LOC: ER 18:13
PROVIDERS: Emergency Medicine
DX: K85.90 Acute pancreatitis without necrosis or infection, unspecified (principal); D72.829 Elevated white blood cell count, unspecified; G40.909 Epilepsy, unspecified, not intractable, without status epilepticus; E03.9 Hypothyroidism, unspecified; I50.9 Heart failure, unspecified; Z79.899 Other long term (current) drug therapy; Z79.82 Long term (current) use of aspirin
CPT/HCPCS: 36415; 80053; 83690; 85025; 93005; 93010; A9270; J1170; J3010; J7030

== ENCOUNTER 2023-01-03 14:05 | Emergency (ER) | payer MEDICARE ==
[~2023-01-03] VITALS: Ht 185.4 cm; Wt 113.4 kg
[~2023-01-03 14:05] MED LIST changes: +FOSAMAX70 MG PO
[2023-01-03 15:20] LABS: BASOPHILS ABSOLUTE AUTO 0.06 K/mm3 (0.00-0.23); BASOPHILS PERCENT AUTO 1 % (0-2); EOSINOPHILS PERCENT AUTO 5 % (0-6); Hematocrit 39.4 % (37.0-53.0); Hemoglobin 13.2 g/dL (13.5-17.5); IMMATURE GRAN ABSOLUTE AUTO 0.03 K/mm3 (0.00-0.10); IMMATURE GRAN PERCENT AUTO 0 % (0-1); LYMPHOCYTES ABSOLUTE AUTO 1.64 K/mm3 (0.84-5.20); LYMPHOCYTES PERCENT AUTO 19 % (21-46); MONOCYTES ABSOLUTE AUTO 0.47 K/mm3 (0.16-1.47); MONOCYTES PERCENT AUTO 6 % (4-13); Mean Corpuscular HGB 29.6 pg (26.0-34.0); Mean Corpuscular HGB Conc 33.5 g/dL (31.5-36.5); Mean Corpuscular Volume 88 fL (80-100); Mean Platelet Volume 9.5 fL (9.1-12.4); NEUTROPHILS ABSOLUTE AUTO 5.88 K/mm3 (1.96-9.15); NEUTROPHILS PERCENT AUTO 69 % (41-73); Platelet Count 223 K/mm3 (150-400); RDW Coefficient Variation 13.8 % (11.7-14.2); RDW Standard Deviation 44.6 fL (35.1-46.3); Red Blood Cell Count 4.46 M/mm3 (4.30-5.90); White Blood Cell Count 8.48 K/mm3 (4.00-11.30)
[2023-01-03 15:52] LABS: Albumin, Blood 3.8 g/dL (3.4-5.0); Albumin/Globulin Ratio 0.9 (0.8-1.8); Bilirubin, Total 0.5 mg/dL (0.1-1.0); Bun/Creatinine Ratio 18.8 (12.0-20.0); Calcium, Blood 9.7 mg/dL (8.5-10.1); Creatinine, Blood 0.91 mg/dL (0.60-1.20); Globulin, Blood 4.1 g/dL (2.2-4.0); Potassium, Blood 4.3 mmol/L (3.5-5.5); Total Protein, Blood 7.9 g/dL (6.4-8.2)
== END 2023-01-03 19:39 | disposition home or self-care (01) ==
LOC: ER 14:05
PROVIDERS: Physician Assistant
DX: K85.90 Acute pancreatitis without necrosis or infection, unspecified (principal); Z79.899 Other long term (current) drug therapy; Z79.82 Long term (current) use of aspirin; G40.909 Epilepsy, unspecified, not intractable, without status epilepticus; E03.9 Hypothyroidism, unspecified; G43.909 Migraine, unspecified, not intractable, without status migrainosus
CPT/HCPCS: 80053; 83690; 85025; 93005; 93010; 96361; 96374; 96375; 96376; 99284-25; A9270; J1170; J2405; J7030

== ENCOUNTER 2023-02-27 11:33 | Inpatient (IN) | payer MEDICARE ==
[2023-02-27 12:47] LABS: BASOPHILS ABSOLUTE AUTO 0.11 K/mm3 (0.00-0.23); BASOPHILS PERCENT AUTO 1 % (0-2); EOSINOPHILS ABSOLUTE AUTO 0.04 K/mm3 (0.00-0.68); EOSINOPHILS PERCENT AUTO 0 % (0-6); Hematocrit 40.8 % (37.0-53.0); Hemoglobin 13.7 g/dL (13.5-17.5); IMMATURE GRAN ABSOLUTE AUTO 0.17 K/mm3 (0.00-0.10); IMMATURE GRAN PERCENT AUTO 1 % (0-1); LYMPHOCYTES ABSOLUTE AUTO 3.68 K/mm3 (0.84-5.20); LYMPHOCYTES PERCENT AUTO 18 % (21-46); MONOCYTES ABSOLUTE AUTO 1.23 K/mm3 (0.16-1.47); MONOCYTES PERCENT AUTO 6 % (4-13); Mean Corpuscular HGB 29.8 pg (26.0-34.0); Mean Corpuscular HGB Conc 33.6 g/dL (31.5-36.5); Mean Corpuscular Volume 89 fL (80-100); NEUTROPHILS ABSOLUTE AUTO 14.74 K/mm3 (1.96-9.15); NEUTROPHILS PERCENT AUTO 74 % (41-73); Platelet Count 299 K/mm3 (150-400); RDW Coefficient Variation 13.3 % (11.7-14.2); RDW Standard Deviation 43.4 fL (35.1-46.3); Red Blood Cell Count 4.59 M/mm3 (4.30-5.90); White Blood Cell Count 19.97 K/mm3 (4.00-11.30)
[2023-02-27 12:50] LABS: Bilirubin, Total 0.6 mg/dL (0.1-1.0); Bun/Creatinine Ratio 18.9 (12.0-20.0); Calcium, Blood 9.8 mg/dL (8.5-10.1); Creatinine, Blood 1.22 mg/dL (0.60-1.20); Globulin, Blood 3.9 g/dL (2.2-4.0); Total Protein, Blood 7.9 g/dL (6.4-8.2)
[2023-02-27 14:42] LABS: Source, Urine Clean Catch
[2023-02-27 14:57] LABS: Appearance, Urine Clear (Clear); Bilirubin, Urine Neg (Neg); Blood, Urine Neg (Neg); Color, Urine Yellow (P-Yellow); Glucose Qualitative, Urine Neg (Neg); Ketones, Urine 1+ (Neg); Leukocyte Esterase, Urine Neg (Neg); Nitrite, Urine Neg (Neg); Protein, Urine 1+ (Neg); Specific Gravity, Urine 1.015 (1.003-1.022); Urobilinogen, Urine 1+ (Normal)
[2023-02-27] MEDS ORDERED: METF500C PO (17:22)
[2023-02-27] MEDS ORDERED: OMEP20ER PO (17:23)
[2023-02-27] MEDS ORDERED: QUET100 PO (17:24)
[2023-02-27 18:21] VITALS: BP 147/79
[2023-02-27 20:14] VITALS: BP 136/80
--- NOTE | 2023-02-27 22:47 | NUR ---
START OF SHIFT THIS STUDENT NURSE ASSUMED CARE OF PT AT 1899 UNDER THE OBSERVATION OF RENETTA PRADHAN. MET PT SPOUSE. PT ABLE TO STAND AT BEDSIDE AND USE URINAL WITH SB ASSIST. PT COMPLAINS OF PAIN AND VERBALIZES "SOMETHING THROUGH THE IV. THE PILLS DO NOT WORK." RENETTA PRADHAN ADMINISTERED 25 MCG OF FENTANYL AT 2033. PT EXPRESSED NO PAIN RELIEF. PT REFUSED OFFERS FOR COOL THERAPY AND HEAT THERAPY. RENETTA PRADHAN ADMINISTERED HYDROCODONE AT 2234. WILL CONTINUE TO MONITOR. PT A&O X4. PT HR AND BP ELEVATED, METOPROLOL GIVEN WITH HS MEDS, WILL CONTINUE TO MONITOR. REMAINING VSS. PT LEFT IN A POSITION OF COMFORT AND SAFETY WITH BED LOCKED AND IN LOW POSITION, 3 RAILS RAISED, NONSKID SOCKS IN PLACE, ROOM FREE OF DEBRIS, BED ALARM ACTIVATED, AND CALL LIGHT WITHIN REACH.
[2023-02-28 02:32] VITALS: BP 132/85
--- NOTE | 2023-02-28 03:57 | NUR ---
SHIFT SUMMARY THIS STUDENT NURSE ADDRESSED THE PT'S PAIN BY OFFERING PRESCRIBED PAIN MEDICATIONS AND PROVIDING REPOSITIONING. PT VSS. PT A&OX4. PT NPO OF [address] CASPER ORDERS. CONSULT REQUESTED WITH DR MUSE FOR ORTHO CONSULT FOR PROMIXAL R HUMERUS FX. LACTIC ACID TRENDING DOWN. PT REMAINS IN POSITION OF SAFETY AND COMFORT. WILL CONTINUE TO MONITOR.
[2023-02-28 05:03] LABS: BASOPHILS ABSOLUTE AUTO 0.07 K/mm3 (0.00-0.23); BASOPHILS PERCENT AUTO 1 % (0-2); EOSINOPHILS ABSOLUTE AUTO 0.15 K/mm3 (0.00-0.68); EOSINOPHILS PERCENT AUTO 1 % (0-6); Hematocrit 36.8 % (37.0-53.0); Hemoglobin 12.5 g/dL (13.5-17.5); IMMATURE GRAN ABSOLUTE AUTO 0.08 K/mm3 (0.00-0.10); IMMATURE GRAN PERCENT AUTO 1 % (0-1); LYMPHOCYTES ABSOLUTE AUTO 2.28 K/mm3 (0.84-5.20); LYMPHOCYTES PERCENT AUTO 17 % (21-46); MONOCYTES ABSOLUTE AUTO 0.97 K/mm3 (0.16-1.47); MONOCYTES PERCENT AUTO 7 % (4-13); Mean Corpuscular HGB 29.8 pg (26.0-34.0); Mean Corpuscular Volume 88 fL (80-100); Mean Platelet Volume 9.9 fL (9.1-12.4); NEUTROPHILS ABSOLUTE AUTO 9.69 K/mm3 (1.96-9.15); NEUTROPHILS PERCENT AUTO 73 % (41-73); Platelet Count 207 K/mm3 (150-400); RDW Coefficient Variation 13.4 % (11.7-14.2); RDW Standard Deviation 43.1 fL (35.1-46.3); Red Blood Cell Count 4.19 M/mm3 (4.30-5.90); White Blood Cell Count 13.24 K/mm3 (4.00-11.30)
--- NOTE | 2023-02-28 05:53 | NUR ---
CTA NOTE I HAVE READ THIS HRIS ANALYST'S DOCUMENTATION AND I AGREE. SHIFT SUMMARY UNDER HRIS ANALYST NOTE
[2023-02-28 05:55] LABS: Albumin, Blood 3.8 g/dL (3.4-5.0); Albumin/Globulin Ratio 1.1 (0.8-1.8); Bilirubin, Total 0.9 mg/dL (0.1-1.0); Bun/Creatinine Ratio 19.4 (12.0-20.0); Calcium, Blood 9.3 mg/dL (8.5-10.1); Creatinine, Blood 1.24 mg/dL (0.60-1.20); Globulin, Blood 3.6 g/dL (2.2-4.0); Total Protein, Blood 7.4 g/dL (6.4-8.2)
[2023-02-28 07:20] VITALS: BP 130/82
--- NOTE | 2023-02-28 08:16 | NUR ---
ARM SLING APPLIED TO RIGHT ARM PER ORDER.
--- NOTE | 2023-02-28 09:28 | NUR ---
DR. HUSTON INFORMED OF PT COMPLAINT OF PAIN NOT MANAGED WITH CURRENT MEDICATION REGIMEN. ORDERS RECEIVED TO CHANGE NORCO TO PERCOCET 10/325 MG Q4 PRN AND CHANGE FENTANYL TO 25-50 MCG Q6 PRN. ORDERS PROCESSED.
[2023-02-28 15:19] VITALS: BP 124/83
--- NOTE | 2023-02-28 18:11 | NUR ---
SHIFT SUMMARY: PT A/O X 4, STANDBY ASSIST. NO SEIZURE ACTIVITY TODAY. PT CONTINUES TO REPORT 8-10/10 PAIN TO RIGHT ARM AND COMPLAINS OF THROBBING PAIN. PT ARM SUPPORTED IN SLING THROUGHOUT THE DAY AND SUPPORTED WITH A PILLOW WHILE IN BED. PT REQUESTING PAIN MEDICATIONS BEFORE THEY ARE DUE. PT REMINDED OF WHEN HE CAN HAVE THEM AND IS AGREEABLE TO WAITING THE AMOUNT OF TIME TO GET THEM. PT EATING AND WELL AND DRINKING FLUIDS WELL. PT UP TO BEDSIDE AND USES URINAL. PT NEEDS ASSISTANCE WITH ALL ADL'S AT THIS TIME.
[2023-02-28 21:12] VITALS: BP 154/89
--- NOTE | 2023-02-28 23:49 | NUR ---
PT UNDOES STRAP FROM AROUND HIS NECK FOR HIS SLING T/O THE NIGHT. PT STATES THAT THE STRAP FOR HE SLING IS SCRATCHING HIS NECK. EDUCATED THE PT ON THE IMPORTANCE OF KEEPING THE SLING IN PLACE AND KEEPING HIS ARM AT A 90 DEGREE ANGLE. OFFERED TO PUT A WASHCLOTH UNDER THE PTS NECK STRAP, PT STATES HE WOULD GET TO HOT, OFFERED THE PT A FAN PT STATES THE FAN WOULD ANNOY HIM, OFFERED THE PT AND ICE PACK PT STATES THATS A WASTE OF TIME. PT ALSO STATES THAT PO MEDICATION IS OF NO USE, WOULD RATHER HAVE STRICTLY IV PAIN MEDICATION. EDUCATED PT THAT WE ARE ALTERNATING PO PERCOCET AND IV FENTANYL FOR PAIN MANAGEMENT.
[2023-03-01 02:41] VITALS: BP 122/86
--- NOTE | 2023-03-01 04:13 | NUR ---
SHIFT SUMMARY; PT UP FREQUENTLY TO BEDSIDE TO URINATE. PT IS REQUESTING PRN PAIN MEDICATION FREQUENTLY AND EXPLAINS THAT HIS SHOULDER FEELS LIKE IT IS GRINDING. PT IS AGGREVATED THAT HE IS RECEIVING ORAL AND IV PAIN MEDICATION RATHER THAN JUST IV PAIN MEDICATION. PT HAS STATED NUMEROUS TIMES THAT HE WANTS DILAUDID BECAUSE IT MAKES HIM "FEEL LIKE HE IS IN THE CLOUDS". PT DOES NOT LIKE TO WEAR HIS SLING ON HIS R ARM, PT STATES THAT IT IS RUBBING INTO HIS NECK. PT DOES NOT WANT TO TRY A WASHCLOTH UNDER THE NECK STRAP, NOR DOES HE WANT TO TRY PUTTING A SHIRT ON. PT IS UNAGREEABLE TO TRYING ICE ON HIS SHOULDER WELL. PT IS AOX X4 AND A STANDBY ASSIST TO THE BEDSIDE. PT DENIES ANY CHEST PAIN/PRESSURE, SEIZURE ACTIVITY OR N/V. CURRENTLY THE PT IS LAYING IN BED WITH THE BED IN THE LOWEST POSITION AND THE CALL LIGHT AT BEDSIDE.
[2023-03-01 06:07] LABS: BASOPHILS ABSOLUTE AUTO 0.08 K/mm3 (0.00-0.23); BASOPHILS PERCENT AUTO 1 % (0-2); EOSINOPHILS ABSOLUTE AUTO 0.28 K/mm3 (0.00-0.68); EOSINOPHILS PERCENT AUTO 2 % (0-6); Hematocrit 33.8 % (37.0-53.0); Hemoglobin 11.5 g/dL (13.5-17.5); IMMATURE GRAN ABSOLUTE AUTO 0.04 K/mm3 (0.00-0.10); IMMATURE GRAN PERCENT AUTO 0 % (0-1); LYMPHOCYTES ABSOLUTE AUTO 1.73 K/mm3 (0.84-5.20); LYMPHOCYTES PERCENT AUTO 15 % (21-46); MONOCYTES ABSOLUTE AUTO 0.89 K/mm3 (0.16-1.47); MONOCYTES PERCENT AUTO 8 % (4-13); Mean Corpuscular HGB 29.7 pg (26.0-34.0); Mean Corpuscular Volume 87 fL (80-100); Mean Platelet Volume 9.9 fL (9.1-12.4); NEUTROPHILS ABSOLUTE AUTO 8.58 K/mm3 (1.96-9.15); NEUTROPHILS PERCENT AUTO 74 % (41-73); Platelet Count 171 K/mm3 (150-400); RDW Coefficient Variation 13.3 % (11.7-14.2); Red Blood Cell Count 3.87 M/mm3 (4.30-5.90)
[2023-03-01 06:30] LABS: Albumin, Blood 3.4 g/dL (3.4-5.0); Albumin/Globulin Ratio 0.9 (0.8-1.8); Bilirubin, Total 0.7 mg/dL (0.1-1.0); Bun/Creatinine Ratio 22.1 (12.0-20.0); Calcium, Blood 8.7 mg/dL (8.5-10.1); Creatinine, Blood 1.04 mg/dL (0.60-1.20); Globulin, Blood 3.6 g/dL (2.2-4.0); Potassium, Blood 3.9 mmol/L (3.5-5.5)
[2023-03-01 07:12] VITALS: BP 146/93
[2023-03-01] MEDS ORDERED: Percocet 10-321 EACH PO (14:02)
--- NOTE | 2023-03-01 14:49 | NUR ---
DISCHARGE SUMMARY: PT EDUCATED ON DISCHARGE INSTRUCTIONS AND MEDICATIONS. PT VU. PT ASSISTED WITH PUTTING SHOES ON AND CLOTHES. PT ESCORTED TO POV VIA WHEELCHAIR BY STRAIGHTENER WITH . BELONGINGS PACKED AND SENT WITH PT.
--- NOTE | 2023-03-01 14:51 | NUR ---
LATE ENTRY: ATTEMPTED TO APPLY XLARGE SHOULDER IMMOBILIZER THIS MORNING BUT IT WAS TOO SMALL. CALLED [facility] [employer] AND THEY DID NOT HAVE A LARGER SIZE AVAILABLE. PLACED SLING BACK ON PT ARM AND INFORMED HIM HE CAN PURCHASE FROM [facility] STORE IF LARGER SIZE AVAILABLE.
== END 2023-03-01 14:38 | disposition home or self-care (01) | DRG 563 ==
LOC: ER 11:33 → MEDS 11:34
PROVIDERS: Emergency Medicine; Family Medicine; ADMIT Internal Medicine
DX: S42.251A Displaced fracture of greater tuberosity of right humerus, initial encounter for closed fracture (principal); I50.32 Chronic diastolic (congestive) heart failure; E87.21 Acute metabolic acidosis; G40.909 Epilepsy, unspecified, not intractable, without status epilepticus; D72.829 Elevated white blood cell count, unspecified; E03.9 Hypothyroidism, unspecified; F31.9 Bipolar disorder, unspecified; E66.9 Obesity, unspecified; F10.11 Alcohol abuse, in remission; G43.709 Chronic migraine without aura, not intractable, without status migrainosus; Y90.0 Blood alcohol level of less than 20 mg/100 ml; W22.8XXA Striking against or struck by other objects, initial encounter; R74.8 Abnormal levels of other serum enzymes; Z93.0 Tracheostomy status; Z98.890 Other specified postprocedural states; Z79.82 Long term (current) use of aspirin; Z93.1 Gastrostomy status; Z79.899 Other long term (current) drug therapy; Z79.84 Long term (current) use of oral hypoglycemic drugs; Z89.022 Acquired absence of left finger(s); Z87.820 Personal history of traumatic brain injury; Z87.19 Personal history of other diseases of the digestive system; Z79.02 Long term (current) use of antithrombotics/antiplatelets; Z95.1 Presence of aortocoronary bypass graft; Z68.33 Body mass index [BMI] 33.0-33.9, adult
CPT/HCPCS: 36415; 71046; 73030; 73200; 76377; 80053; 82947; 83605; 83735; 85025; 93005; 93010; 96361; 96374; 96375; 96376; 97110; 97162; 97165; 97530; 97535; 99285-25; A9270; G0378; G0480; J1885; J3010; J7030

== ENCOUNTER 2023-04-12 08:46 | Emergency (ER) | payer MEDICARE ==
[~2023-04-12] VITALS: Ht 182.9 cm; Wt 108.9 kg
[~2023-04-12 08:46] MED LIST changes: +METF500C PO; +OMEP20ER PO; +Percocet 10-321 EACH PO
[2023-04-12 09:45] LABS: BASOPHILS ABSOLUTE AUTO 0.05 K/mm3 (0.00-0.23); BASOPHILS PERCENT AUTO 0 % (0-2); EOSINOPHILS ABSOLUTE AUTO 0.02 K/mm3 (0.00-0.68); EOSINOPHILS PERCENT AUTO 0 % (0-6); Hematocrit 42.8 % (37.0-53.0); Hemoglobin 14.6 g/dL (13.5-17.5); IMMATURE GRAN ABSOLUTE AUTO 0.05 K/mm3 (0.00-0.10); IMMATURE GRAN PERCENT AUTO 0 % (0-1); LYMPHOCYTES ABSOLUTE AUTO 1.41 K/mm3 (0.84-5.20); LYMPHOCYTES PERCENT AUTO 10 % (21-46); MONOCYTES ABSOLUTE AUTO 0.44 K/mm3 (0.16-1.47); MONOCYTES PERCENT AUTO 3 % (4-13); Mean Corpuscular HGB 29.1 pg (26.0-34.0); Mean Corpuscular HGB Conc 34.1 g/dL (31.5-36.5); Mean Corpuscular Volume 85 fL (80-100); Mean Platelet Volume 10.3 fL (9.1-12.4); NEUTROPHILS ABSOLUTE AUTO 12.89 K/mm3 (1.96-9.15); NEUTROPHILS PERCENT AUTO 87 % (41-73); Platelet Count 258 K/mm3 (150-400); RDW Coefficient Variation 13.6 % (11.7-14.2); RDW Standard Deviation 42.2 fL (35.1-46.3); Red Blood Cell Count 5.01 M/mm3 (4.30-5.90); White Blood Cell Count 14.86 K/mm3 (4.00-11.30)
[2023-04-12 10:04] LABS: Albumin, Blood 4.7 g/dL (3.4-5.0); Albumin/Globulin Ratio 1.1 (0.8-1.8); Bilirubin, Total 0.4 mg/dL (0.1-1.0); Bun/Creatinine Ratio 25.8 (12.0-20.0); Calcium, Blood 10.1 mg/dL (8.5-10.1); Creatinine, Blood 1.2 mg/dL (0.60-1.20); Globulin, Blood 4.2 g/dL (2.2-4.0); Potassium, Blood 3.9 mmol/L (3.5-5.5); Total Protein, Blood 8.9 g/dL (6.4-8.2)
[2023-04-12] MEDS ORDERED: LAMOTRIGINE25 M4 PO (10:53)
[2023-04-12] MEDS ORDERED: METOPROLOL TART25 MG PO (10:57)
[2023-04-12 12:51] LABS: Source, Urine Clean Catch
[2023-04-12 13:01] LABS: Appearance, Urine Hazy (Clear); Bilirubin, Urine Neg (Neg); Blood, Urine 5+ (Neg); Color, Urine Yellow (P-Yellow); Glucose Qualitative, Urine Neg (Neg); Ketones, Urine 2+ (Neg); Leukocyte Esterase, Urine Neg (Neg); Nitrite, Urine Neg (Neg); Protein, Urine 2+ (Neg); Urobilinogen, Urine NORM (Normal); pH, Urine 6.5 (5.0-8.0)
[2023-04-12 14:00] VITALS: BP 137/92
[2023-04-12 14:06] LABS: Calcium Oxalate Crystals Few /hpf; Red Blood Cells, Urine 50-100 /hpf (0-2)
[2023-04-12 14:07] LABS: White Blood Cells, Urine 0-2 /hpf (0-5)
[2023-04-12 14:08] LABS: Bacteria Rare /hpf; Mucus Light (0-Heavy); Squamous Epithelial Cells Rare /hpf (Few)
[2023-04-12] MEDS ORDERED: IBUP800 PO (14:45)
[2023-04-12] MEDS ORDERED: KETO10 PO (15:13)
== END 2023-04-12 15:18 | disposition home or self-care (01) ==
LOC: ER 08:46
PROVIDERS: Physician Assistant
DX: N13.2 Hydronephrosis with renal and ureteral calculous obstruction (principal); G40.909 Epilepsy, unspecified, not intractable, without status epilepticus; E03.9 Hypothyroidism, unspecified; I50.32 Chronic diastolic (congestive) heart failure; Z79.82 Long term (current) use of aspirin; Z79.899 Other long term (current) drug therapy
CPT/HCPCS: 74177; 80053; 81001; 83690; 85025; J1885; J2270; J2405; Q9967

== ENCOUNTER → 2023-04-14 | Outpatient (CLI) | payer MEDICARE ==
[~2023-04-14] MED LIST changes: +IBUP800 PO; +KETO10 PO; +LAMOTRIGINE25 M4 PO; +METOPROLOL TART25 MG PO
[2023-04-20 10:10] LABS: CA OXALATE DIHYDRATE 70 % (.); CALCIUM OXALATE MONOHYDRATE 20 % (.); COLOR Tan (.); SIZE 3x3 mm (.); SOURCE Kidney (.); WEIGHT 8 mg (.)
== END | disposition home or self-care (01) ==
LOC: LAB 16:12 → LAB SHORT 16:12
PROVIDERS: Family Medicine
DX: N20.0 Calculus of kidney (principal)
CPT/HCPCS: 82365

== ENCOUNTER 2024-07-04 02:33 | Emergency (ER) | payer MEDICARE ==
[~2024-07-04] VITALS: Ht 182.9 cm; Wt 111.1 kg
[2024-07-04 02:42] VITALS: BP 126/81
[2024-07-04 03:07] LABS: BASOPHILS ABSOLUTE AUTO 0.08 K/mm3 (0.00-0.23); BASOPHILS PERCENT AUTO 1 % (0-2); EOSINOPHILS ABSOLUTE AUTO 0.26 K/mm3 (0.00-0.68); EOSINOPHILS PERCENT AUTO 3 % (0-6); Hematocrit 36.7 % (37.0-53.0); Hemoglobin 12.6 g/dL (13.5-17.5); IMMATURE GRAN ABSOLUTE AUTO 0.06 K/mm3 (0.00-0.10); IMMATURE GRAN PERCENT AUTO 1 % (0-1); LYMPHOCYTES ABSOLUTE AUTO 2.39 K/mm3 (0.84-5.20); LYMPHOCYTES PERCENT AUTO 26 % (21-46); MONOCYTES ABSOLUTE AUTO 0.37 K/mm3 (0.16-1.47); MONOCYTES PERCENT AUTO 4 % (4-13); Mean Corpuscular HGB 30.4 pg (26.0-34.0); Mean Corpuscular HGB Conc 34.3 g/dL (31.5-36.5); Mean Corpuscular Volume 89 fL (80-100); NEUTROPHILS ABSOLUTE AUTO 5.94 K/mm3 (1.96-9.15); NEUTROPHILS PERCENT AUTO 65 % (41-73); Platelet Count 190 K/mm3 (150-400); RDW Coefficient Variation 13.4 % (11.7-14.2); RDW Standard Deviation 43.5 fL (35.1-46.3); Red Blood Cell Count 4.14 M/mm3 (4.30-5.90)
[2024-07-04 03:21] LABS: Albumin, Blood 3.7 g/dL (3.4-5.0); Albumin/Globulin Ratio 1.1 (0.8-1.8); Bilirubin, Total 0.2 mg/dL (0.1-1.0); Bun/Creatinine Ratio 17.3 (12.0-20.0); Calcium, Blood 9.5 mg/dL (8.5-10.1); Creatinine, Blood 0.98 mg/dL (0.60-1.20); Globulin, Blood 3.3 g/dL (2.2-4.0); Potassium, Blood 4.2 mmol/L (3.5-5.5)
[2024-07-04] MEDS ORDERED: IBUP800 PO (03:25)
[2024-07-04] MEDS ORDERED: NS 1,000 ML IV SCH (03:35)
[2024-07-04] MEDS ORDERED: Ketorolac Tromethamine 30mg Vial IV ONE (04:25)
== END 2024-07-04 04:39 | disposition home or self-care (01) ==
LOC: ER 02:33
PROVIDERS: Emergency Medicine
DX: F10.129 Alcohol abuse with intoxication, unspecified (principal); Z79.899 Other long term (current) drug therapy; Z79.84 Long term (current) use of oral hypoglycemic drugs; Z79.82 Long term (current) use of aspirin; G40.909 Epilepsy, unspecified, not intractable, without status epilepticus; E03.9 Hypothyroidism, unspecified; G43.909 Migraine, unspecified, not intractable, without status migrainosus
CPT/HCPCS: 70450; 72125; 80053; 85025; 96374; 99285-25; J1885

== ENCOUNTER 2024-07-24 20:57 | Emergency (ER) | payer MEDICARE ==
[~2024-07-24] VITALS: Ht 185.4 cm; Wt 111.1 kg
[2024-07-24 21:47] LABS: BASOPHILS PERCENT AUTO 1 % (0-2); EOSINOPHILS ABSOLUTE AUTO 0.26 K/mm3 (0.00-0.68); EOSINOPHILS PERCENT AUTO 2 % (0-6); Hematocrit 42.5 % (37.0-53.0); Hemoglobin 14.2 g/dL (13.5-17.5); IMMATURE GRAN ABSOLUTE AUTO 0.06 K/mm3 (0.00-0.10); IMMATURE GRAN PERCENT AUTO 1 % (0-1); LYMPHOCYTES ABSOLUTE AUTO 2.07 K/mm3 (0.84-5.20); LYMPHOCYTES PERCENT AUTO 19 % (21-46); MONOCYTES ABSOLUTE AUTO 0.48 K/mm3 (0.16-1.47); MONOCYTES PERCENT AUTO 5 % (4-13); Mean Corpuscular HGB 29.8 pg (26.0-34.0); Mean Corpuscular HGB Conc 33.4 g/dL (31.5-36.5); Mean Corpuscular Volume 89 fL (80-100); Mean Platelet Volume 9.5 fL (9.1-12.4); NEUTROPHILS ABSOLUTE AUTO 7.76 K/mm3 (1.96-9.15); NEUTROPHILS PERCENT AUTO 72 % (41-73); Platelet Count 216 K/mm3 (150-400); RDW Coefficient Variation 13.2 % (11.7-14.2); RDW Standard Deviation 43.1 fL (35.1-46.3); Red Blood Cell Count 4.77 M/mm3 (4.30-5.90); White Blood Cell Count 10.73 K/mm3 (4.00-11.30)
[2024-07-24 22:27] LABS: Alanine Aminotransfer (ALT/SGP 54 U/L (12-78); Albumin, Blood 4.1 g/dL (3.4-5.0); Albumin/Globulin Ratio 1.1 (0.8-1.8); Alk Phos 136 U/L (50-136); Anion Gap 15 mmol/L (3-11); Aspartate Aminotrans (AST/SGOT 30 U/L (12-37); Bilirubin, Total 0.4 mg/dL (0.1-1.0); Blood Urea Nitrogen 18 mg/dL (8-24); Bun/Creatinine Ratio 19.4 (12.0-20.0); CO2, Blood 20 mmol/L (21-32); Calcium, Blood 9.9 mg/dL (8.5-10.1); Chloride, Blood 111 mmol/L (98-108); Creatinine, Blood 0.93 mg/dL (0.60-1.20); Globulin, Blood 3.9 g/dL (2.2-4.0); Glomerular Filtration Rate 92 (60-); Glucose, Blood 209 mg/dL (70-99); Potassium, Blood 4.6 mmol/L (3.5-5.5); Sodium, Blood 141 mmol/L (136-145)
[2024-07-24] MEDS ORDERED: Ketorolac Tromethamine 30mg Vial IV ONE (23:30)
[2024-07-24 23:55] LABS: Ethanol (Alcohol), Blood, Med <3 mg/dL
[2024-07-24] MEDS ORDERED: Ondansetron HCl 2 MG / ML 2ML Vial IV ONE (23:55)
[2024-07-25 00:10] LABS: Source, Urine Voided
[2024-07-25 00:30] LABS: Appearance, Urine Clear (Clear); Bilirubin, Urine Neg (Neg); Blood, Urine Neg (Neg); Color, Urine Yellow (P-Yellow); Glucose Qualitative, Urine Neg (Neg); Ketones, Urine Neg (Neg); Leukocyte Esterase, Urine Neg (Neg); Nitrite, Urine Neg (Neg); Protein, Urine Neg (Neg); U Amphetamine Screen Not Detected; U Barbituate Screen Not Detected; U Benzodiazapine Screen Not Detected; U Buprenorphine Screen Not Detected; U Cannabinoids Screen DETECTED; U Cocaine Screen Not Detected; U Methadone Screen Not Detected; U Methamphetamine Screen Not Detected; U Opiates Screen Not Detected; U Oxycodone Screen Not Detected; U Phencyclidine Screen Not Detected; Urobilinogen, Urine NORM (Normal)
[2024-07-25] MEDS ORDERED: Magnesium Hydroxide Conc 10 ML UDC PO ONE (01:05)
[2024-07-25] MEDS ORDERED: Ondansetron Odt8 MG MM (01:57)
[2024-07-25] MEDS ORDERED: Miralax17 GM PO (01:57)
[2024-07-25] MEDS ORDERED: Norco 5-325 Ta1 EACH PO (01:57)
[2024-07-25] MEDS ORDERED: IBUP400 PO (01:58)
[2024-07-25 02:30] VITALS: BP 141/88
== END 2024-07-25 02:30 | disposition home or self-care (01) ==
LOC: ER 20:57
PROVIDERS: Emergency Medicine; Student in an Organized Health Care Education/Training Program
DX: K85.90 Acute pancreatitis without necrosis or infection, unspecified (principal); K59.00 Constipation, unspecified; E03.9 Hypothyroidism, unspecified; G40.909 Epilepsy, unspecified, not intractable, without status epilepticus; G43.909 Migraine, unspecified, not intractable, without status migrainosus; I50.32 Chronic diastolic (congestive) heart failure; R41.841 Cognitive communication deficit; Z87.820 Personal history of traumatic brain injury; Z79.890 Hormone replacement therapy; Z79.82 Long term (current) use of aspirin; Z79.84 Long term (current) use of oral hypoglycemic drugs; Z79.899 Other long term (current) drug therapy
CPT/HCPCS: 74177; 80053; 80320; 81003; 83605; 83690; 85025; 96374-59; 99284-25; A9270; J1885; Q9967

== ENCOUNTER 2024-08-18 20:39 | Emergency (ER) | payer MEDICARE ==
[~2024-08-18] VITALS: Ht 185.4 cm; Wt 111.1 kg
[~2024-08-18 20:39] MED LIST changes: +Miralax17 GM PO; +Ondansetron Odt8 MG MM
[2024-08-18 21:00] LABS: BASOPHILS ABSOLUTE AUTO 0.09 K/mm3 (0.00-0.23); BASOPHILS PERCENT AUTO 1 % (0-2); EOSINOPHILS ABSOLUTE AUTO 0.53 K/mm3 (0.00-0.68); EOSINOPHILS PERCENT AUTO 5 % (0-6); Hematocrit 43.2 % (37.0-53.0); Hemoglobin 14.6 g/dL (13.5-17.5); IMMATURE GRAN ABSOLUTE AUTO 0.04 K/mm3 (0.00-0.10); IMMATURE GRAN PERCENT AUTO 0 % (0-1); LYMPHOCYTES ABSOLUTE AUTO 2.28 K/mm3 (0.84-5.20); LYMPHOCYTES PERCENT AUTO 22 % (21-46); MONOCYTES ABSOLUTE AUTO 0.44 K/mm3 (0.16-1.47); MONOCYTES PERCENT AUTO 4 % (4-13); Mean Corpuscular HGB 30.4 pg (26.0-34.0); Mean Corpuscular HGB Conc 33.8 g/dL (31.5-36.5); Mean Corpuscular Volume 90 fL (80-100); Mean Platelet Volume 9.6 fL (9.1-12.4); NEUTROPHILS ABSOLUTE AUTO 7.24 K/mm3 (1.96-9.15); NEUTROPHILS PERCENT AUTO 68 % (41-73); Platelet Count 212 K/mm3 (150-400); RDW Coefficient Variation 13.2 % (11.7-14.2); RDW Standard Deviation 43.6 fL (35.1-46.3); Red Blood Cell Count 4.81 M/mm3 (4.30-5.90); White Blood Cell Count 10.62 K/mm3 (4.00-11.30)
[2024-08-18] MEDS ORDERED: TIZANIDINE HCL213 PO (21:11)
[2024-08-18 21:28] LABS: Albumin, Blood 4.4 g/dL (3.4-5.0); Bilirubin, Total 0.4 mg/dL (0.1-1.0); Bun/Creatinine Ratio 19.8 (12.0-20.0); Calcium, Blood 10.7 mg/dL (8.5-10.1); Creatinine, Blood 0.96 mg/dL (0.60-1.20); Globulin, Blood 4.3 g/dL (2.2-4.0); Potassium, Blood 4.6 mmol/L (3.5-5.5); Total Protein, Blood 8.7 g/dL (6.4-8.2)
[2024-08-18] MEDS ORDERED: Atropine/Scopalam/Hyoscam/PB 5 ML UDC PO ONE (21:35)
[2024-08-18] MEDS ORDERED: Lidocaine 2% Viscous Soln 15 ML UDC PO ONE (21:35)
[2024-08-18] MEDS ORDERED: Mag Hydrox/AL Hydrox/Simeth 30 ML UDC PO ONE (21:35)
[2024-08-18 22:00] VITALS: BP 162/88
[2024-08-18] MEDS ORDERED: RX Prepack 6 Tabs Oxycodone 5mg UD ONE (23:05)
[2024-08-18] MEDS ORDERED: RX Prepack 2 Tabs Ondansetron ODT 4MG UD ONE (23:05)
[2024-08-18] MEDS ORDERED: Percocet 5-3251 EACH PO (23:08)
[2024-08-18] MEDS ORDERED: Cyclobenzaprine5 MG PO (23:08)
== END 2024-08-18 23:20 | disposition home or self-care (01) ==
LOC: ER 20:39
PROVIDERS: Physician Assistant
DX: K85.90 Acute pancreatitis without necrosis or infection, unspecified (principal); E03.9 Hypothyroidism, unspecified; G43.909 Migraine, unspecified, not intractable, without status migrainosus; Z79.82 Long term (current) use of aspirin; Z79.899 Other long term (current) drug therapy
CPT/HCPCS: 80053; 83690; 85025; 99284; A9270

== ENCOUNTER 2024-10-29 02:49 | Emergency (ER) | payer MEDICARE ==
[~2024-10-29] VITALS: Ht 185.4 cm; Wt 108.9 kg
[~2024-10-29 02:49] MED LIST changes: +Cyclobenzaprine5 MG PO; +TIZANIDINE HCL213 PO
[2024-10-29 04:00] VITALS: BP 115/78
[2024-10-29] MEDS ORDERED: Voltaren100 GM TOP (04:01)
[2024-10-29] MEDS ORDERED: Robaxin750 MG PO (04:01)
== END 2024-10-29 04:20 | disposition home or self-care (01) ==
LOC: ER 02:49
DX: M54.50 Low back pain, unspecified (principal); G89.29 Other chronic pain; E03.9 Hypothyroidism, unspecified; G43.909 Migraine, unspecified, not intractable, without status migrainosus; Z79.82 Long term (current) use of aspirin; Z79.84 Long term (current) use of oral hypoglycemic drugs; Z79.899 Other long term (current) drug therapy
CPT/HCPCS: 99283

== ENCOUNTER → 2025-09-04 | Outpatient (CLI) | payer MEDICARE ==
[~2025-09-04] MED LIST changes: +Robaxin750 MG PO; +Voltaren100 GM TOP
[2025-09-04 11:00] LABS: BASOPHILS ABSOLUTE AUTO 0.06 K/mm3 (0.00-0.23); BASOPHILS PERCENT AUTO 1 % (0-2); EOSINOPHILS ABSOLUTE AUTO 0.19 K/mm3 (0.00-0.68); EOSINOPHILS PERCENT AUTO 2 % (0-6); Hematocrit 39.5 % (37.0-53.0); Hemoglobin 13.4 g/dL (13.5-17.5); IMMATURE GRAN ABSOLUTE AUTO 0.04 K/mm3 (0.00-0.10); IMMATURE GRAN PERCENT AUTO 0 % (0-1); LYMPHOCYTES ABSOLUTE AUTO 2.12 K/mm3 (0.84-5.20); LYMPHOCYTES PERCENT AUTO 23 % (21-46); MONOCYTES ABSOLUTE AUTO 0.44 K/mm3 (0.16-1.47); MONOCYTES PERCENT AUTO 5 % (4-13); Mean Corpuscular HGB Conc 33.9 g/dL (31.5-36.5); Mean Corpuscular Volume 89 fL (80-100); NEUTROPHILS ABSOLUTE AUTO 6.25 K/mm3 (1.96-9.15); NEUTROPHILS PERCENT AUTO 69 % (41-73); NRBC ABSOLUTE 0.00 K/mm3 (0.00-0.02); NRBC Auto 0.0 /100 WBC (0.0-0.2); Platelet Count 166 K/mm3 (150-400); RDW Coefficient Variation 13.4 % (11.7-14.2); RDW Standard Deviation 43.7 fL (35.1-46.3)
== END ==
LOC: LAB 10:20 → LAB SHORT 10:20
PROVIDERS: Internal Medicine
DX: R19.5 Other fecal abnormalities (principal)
CPT/HCPCS: 85025